=== PATIENT | male | born 1980 | race Caucasian/White ===

== ENCOUNTER 2018-11-07 16:01 | Emergency (ER) | payer MEDICAID ==
[~2018-11-07] VITALS: Ht 190.5 cm; Wt 94.8 kg
[2018-11-07] MEDS ORDERED: IBUP-1114 PO (16:10)
[2018-11-07 18:00] VITALS: BP 128/78
--- NOTE | 2018-11-07 18:55 | REP ---
RIGHT HAND, FOUR VIEWS: Four views of the right hand are performed. On one of the oblique views there is some cortical irregularity of the head of the 5th metacarpal which could possibly indicate a subtle fracture at that location. There is also an apparent irregularity at the medial margin of the hamate which may represent a fracture. Otherwise no acute fracture, dislocation or instrinsic bone disease is seen. Electronically Signed by Anup Lobato MD 11/08/2018 05:00 P
== END 2018-11-07 18:00 | disposition home or self-care (01) ==
LOC: M ED 16:01
DX: S62.145A Nondisplaced fracture of body of hamate [unciform] bone, left wrist, initial encounter for closed fracture (principal); W23.1XXA Caught, crushed, jammed, or pinched between stationary objects, initial encounter; Y92.009 Unspecified place in unspecified non-institutional (private) residence as the place of occurrence of the external cause

== ENCOUNTER → 2018-11-10 | Outpatient (CLI) | payer MEDICAID ==
[~2018-11-10] MED LIST: IBUP-1114 PO
--- NOTE | 2018-11-10 16:23 | REP ---
CT study of the right hand without contrast: History: Dislocation of the fifth metacarpal carpal joint right hand. Comparison radiographs November 07, 2018. CT technique: Helical scanning is acquired and 2 mm axial images are generated. Coronal and sagittal MPR images are generated and reviewed. CT findings: CT imaging confirms the presence of a fracture/dislocation of the fifth carpometacarpal articulation with fracture fragments and some impaction on the ulnar aspect of the distal hamate bone. No definite proximal fifth metacarpal fracture is seen. The proximal end of the fifth metacarpal, however, is subluxed medially (in an ulnar direction). There is some override associated with impaction of the ulnar aspect of the distal surface of the hamate. There is diastases in the articulation between the proximal end of the fifth and the proximal end of the fourth metacarpals. No other carpal or metacarpal fracture is appreciated. Impression: Impacted fracture/dislocation of the 5th carpometacarpal joint with comminuted impacted fragments of the ulnar aspect of the distal end of the hamate bone. The fifth proximal metacarpal appears intact but it is displaced in an ulnar and dorsal direction. Electronically Signed by Jaylon Hwang MD 11/10/2018 04:29 P
== END ==
LOC: M RAD 15:05
PROVIDERS: ATTEND Orthopaedic Surgery Hand Surgery
DX: S63.054A Dislocation of other carpometacarpal joint of right hand, initial encounter (principal); S62.310A Displaced fracture of base of second metacarpal bone, right hand, initial encounter for closed fracture; X58.XXXA Exposure to other specified factors, initial encounter; Y92.9 Unspecified place or not applicable

== ENCOUNTER 2018-11-14 13:13 | Day surgery (SDC) | payer MEDICAID ==
[~2018-11-14] VITALS: Ht 190.5 cm; Wt 92.9 kg
[~2018-11-14 13:13] MED LIST changes: +LIDOCAINE 1% MDV 20ML VIAL SQ PRN; +LR 1,000 ML IV ONE
[2018-11-14] MEDS ORDERED: MIDAZOLAM INJ 2 MG/2 ML VIAL (J2250) As Ordered ONE (14:45)
[2018-11-14] MEDS ORDERED: ONDANSETRON 4MG/2ML VIAL (J2405) As Ordered ONE (14:45)
[2018-11-14] MEDS ORDERED: fentaNYL 100 MCG/2 ML INJECTION (J3010) As Ordered ONE (14:45)
[2018-11-14] MEDS ORDERED: PROPOFOL 200 MG/20 ML VIAL As Ordered ONE ×2 (14:45→14:47)
[2018-11-14] MEDS ORDERED: dexameTHASONE 4 MG/ML 1ML VIAL (J1100) As Ordered ONE (14:45)
[2018-11-14] MEDS ORDERED: LIDOCAINE 2% INJ 100 MG/5 ML SDV (FOR ANES.) As Ordered ONE (14:45)
[2018-11-14] MEDS ORDERED: BUPIVACAINE/EPIN 0.25% 30 ML VIAL As Ordered ONE (15:14)
[2018-11-14] MEDS ORDERED: oxyCODONE 5MG TAB As Ordered ONE (16:36)
[2018-11-14] MEDS: oxyCODONE 5MG TAB PO PRN ×2 (16:40→17:12)
[2018-11-14] MEDS ORDERED: LR 1,000 ML IV SCH (16:45)
[2018-11-14] MEDS ORDERED: fentaNYL 100 MCG/2 ML INJECTION (J3010) IV PRN (16:45)
[2018-11-14] MEDS ORDERED: ONDANSETRON 4MG/2ML VIAL (J2405) IV PRN (16:45)
--- NOTE | 2018-11-14 16:48 | REP ---
C-ARM VIEWS, RIGHT HAND: Multiple C-ARM views right hand are performed intraoperatively. Pins are placed in the region of the 5th metacarpal. The osseous structures appear grossly well aligned. 45.5 seconds of fluoroscopy time was utilized. Electronically Signed by Anup Lobato MD 11/15/2018 10:29 A
[2018-11-14] MEDS ORDERED: KETOROLAC 30 MG/ML VIAL (J1885) As Ordered ONE (16:49)
[2018-11-14] MEDS ORDERED: KETOROLAC 30 MG/ML VIAL (J1885) IV ONE (17:00)
[2018-11-14 17:40] VITALS: BP 119/62
[2018-11-14] MEDS ORDERED: oxyCODONE 5MG TAB PO PRN ×2 (17:46)
[2018-11-14] MEDS ORDERED: MORPHINE 4 MG/ML 1ML VIAL/SYRINGE (J2270) IV PRN (17:46)
--- NOTE | 2018-11-15 13:39 | RO ---
DATE OF PROCEDURE: 11/14/2018 PREOPERATIVE DIAGNOSIS: Right 5th carpometacarpal (CMC) fracture dislocation with hamate fracture. POSTOPERATIVE DIAGNOSIS: Right 5th carpometacarpal (CMC) fracture dislocation with hamate fracture. PROCEDURE: Right open reduction and internal fixation of CMC fracture dislocation of the 5th digit. Open reduction internal fixation right hamate INDICATIONS: This is a pleasant 38-year-old male who suffered an injury to his right hand, resulting in an unstable injury of his right 5th CMC. In order to give him the most appropriate function going forward, I recommended operative intervention. The patient agreed. We discussed all risks and benefits, including but not limited to blood loss, damage to surrounding structures, and infection. SURGEON: Wil Gonsalves MD ASSISTANTS: Marilia Callahan PA-C, who was instrumental for retraction during the hanson components of the procedure. ANESTHESIA: General. ANTIBIOTICS: 2 grams of Ancef. TOURNIQUET TIME: 33 minutes. COMPLICATIONS: None. PROCEDURE DESCRIPTION: The patient was brought back to the operating room (OR), laid down supine on the operative table, undergoing general anesthesia. Once this was complete, we prepped and draped the right arm in the usual fashion. Time-out was had, at which point we raised the tourniquet up to 250 mmHg. We then made a longitudinal incision overlying the 5th CMC. We sharply dissected through using tenotomies to identify any branches of ulnar sensory nerve. Once we found the CMC, we sharply incised the base of the 5th metacarpal along the hamate, exposing the capsule and opening it up, as well. We were able to see the fracture of that hamate at this time. We then reduced the 5th CMC under direct visualization and locked it in place with the 0.045 K wire, going from the 5th to the 4th metacarpal base. This was done twice along with an intramedullary pinning with 0.045 starting at the collateral recess of the 5th metacarpal and down and buried into the hamate. At this point, we felt the reduction was adequate under direct visualization and secure. We confirmed this with mini C-Arm. Once we were happy with this, we irrigated the wound thoroughly, closed the capsule with 2-0 Vicryl reducing the hamate fracture, and closed the subcutaneous tissue with 2-0 Vicryl, and stitched the enclosure with 3-0 Monocryl, at which point we placed the patient in an ulnar gutter cast and tourniquet was let down. Tourniquet time was 33 minutes. The patient was awakened from general anesthesia and taken safely to postanesthesia care unit (PACU). POSTOPERATIVE PLAN: The patient will be in an ulnar gutter cast for 2 weeks. We will see him at the office. Will do cast removal, check on the incision, and place him back into an ulnar gutter cast for approximately another 4 weeks, at which point we will remove the pins and convert him over to a splinting. TESSA
== END 2018-11-14 18:15 | disposition home or self-care (01) ==
LOC: M SDC 13:13
PROVIDERS: ATTEND Orthopaedic Surgery Hand Surgery
DX: S63.054A Dislocation of other carpometacarpal joint of right hand, initial encounter (principal); S62.141A Displaced fracture of body of hamate [unciform] bone, right wrist, initial encounter for closed fracture; X58.XXXA Exposure to other specified factors, initial encounter; Y92.89 Other specified places as the place of occurrence of the external cause; Y93.9 Activity, unspecified; Y99.9 Unspecified external cause status; F17.210 Nicotine dependence, cigarettes, uncomplicated
CPT/HCPCS: 26615; 76000; J0690; J1100; J1885; J2250; J2270; J2405; J3010

== ENCOUNTER 2018-11-25 21:52 | Inpatient (IN) | payer MEDICAID ==
[~2018-11-25] VITALS: Ht 182.9 cm; Wt 101.9 kg
[~2018-11-25 21:52] MED LIST changes: -LIDOCAINE 1% MDV 20ML VIAL SQ PRN; -LR 1,000 ML IV ONE
[2018-11-25] MEDS ORDERED: DOPamine 400 MG/500 ML BAG IN D5W (800MCG/ML) (J1265) As Ordered ONE (22:11)
[2018-11-25] MEDS ORDERED: SODIUM BICARBONATE 8.4% INJ 50 ML SYRINGE As Ordered ONE (22:12)
[2018-11-25 22:29] LABS: HEMATOCRIT 48.5 % (42.0-52.0); HEMOGLOBIN 14.5 g/dl (13.5-17.5); MEAN CORPUSCULAR HEMOGLOBIN 30.3 pg (27.0-33.0); MEAN CORPUSCULAR HGB CONC 29.9 g/dl (32.0-36.5); MEAN CORPUSCULAR VOLUME 101.3 fl (80.0-96.0); PLATELET COUNT, AUTOMATED 153 10^3/uL (150-450); RED BLOOD COUNT 4.79 10^6/uL (4.30-6.10); WHITE BLOOD COUNT 18.6 10^3/uL (4.0-10.0)
[2018-11-25] MEDS ORDERED: LIDOCAINE 2% 5ML JELLY UROJET TOP ONE ×2 (22:30)
[2018-11-25 22:48] LABS: ATYPICAL LYMPH 1 % (0-5); LYMPHOCYTES 11 % (16-44); METAMYELOCYTES 1 % (0-0); MONOCYTES 18 % (0-5); MYELOCYTES 1 % (0-0); NEUTROPHILS 63 % (28-66)
[2018-11-25 22:49] LABS: PLATELET ESTIMATE DECREASED (NORMAL)
[2018-11-25] MEDS ORDERED: NS 1,000 ML IV STA (23:17)
[2018-11-25] MEDS ORDERED: EPINEPHrine 1MG/10ML SYRINGE 1.5IN IV STA ×3 (23:24)
[2018-11-25] MEDS ORDERED: DOPamine HCL 400 MG in IV 1 EA IV SCH (23:30)
[2018-11-25] MEDS ORDERED: NS 1,000 ML IV SCH (23:30)
[2018-11-25 23:34] LABS: AMPHETAMINES LEVEL URINE NEGATIVE (NEGATIVE); BARBITURATES URINE NEGATIVE (NEGATIVE); BENZODIAZEPINES URINE NEGATIVE (NEGATIVE); CANNABINOIDS URINE NEGATIVE (NEGATIVE); COCAINE METABOLITE URINE POSITIVE (NEGATIVE); METHADONE URINE NEGATIVE (NEGATIVE); OPIATES URINE POSITIVE (NEGATIVE); PHENCYCLIDINE URINE NEGATIVE (NEGATIVE)
[2018-11-25] MEDS ORDERED: NOREPINEPHRINE 4 MG/4 ML AMP As Ordered ONE (23:34)
[2018-11-25 23:40] LABS: ALBUMIN 3.4 GM/DL (3.2-5.2); ALT/SGPT 3508 U/L (12-78); AMYLASE 125 U/L (25-115); BILIRUBIN,DIRECT 0.7 MG/DL (0.0-0.2); BLOOD UREA NITROGEN 36 MG/DL (7-18); CALCIUM LEVEL 7.6 MG/DL (8.5-10.1); CARBON DIOXIDE LEVEL 19 MEQ/L (21-32); CHLORIDE LEVEL 101 MEQ/L (98-107); CPK CREATINE PHOSPHOKINASE 4372 U/L (39-308); CREATININE FOR GFR 3.88 MG/DL (0.70-1.30); ETHYL ALCOHOL (ETHANOL) < 0.003 % (0.000-0.010); GLOMERULAR FILTRATION RATE 18.6 (>60); GLUCOSE, FASTING 53 MG/DL (70-100); LIPASE 208 U/L (73-393); MB/CK RELATIVE INDEX 0.43 (< OR =4); POTASSIUM SERUM 4.7 MEQ/L (3.5-5.1); SODIUM LEVEL 143 MEQ/L (136-145); TOTAL PROTEIN 6.4 GM/DL (6.4-8.2); TROPONIN I 0.19 NG/ML (< 0.10)
[2018-11-25] MEDS: NOREPINEPHRINE BITARTRATE 8 MG in D5W 492 ML IV SCH (23:46)
[2018-11-26] VITALS (52 sets, daily range): BP systolic 89–155; BP diastolic 40–73; O2SAT 92–94
[2018-11-26] MEDS ORDERED: D10W/0.45% SODIUM CHLORIDE 1,000 ML IV SCH
[2018-11-26] MEDS ORDERED: NS 1,000 ML IV STA (00:23)
[2018-11-26 00:36] LABS: PARTIAL THROMBOPLASTIN TIME 44.7 SECONDS (25.0-38.4); PROTHROMBIN TIME 24.2 SECONDS (11.8-14.0)
[2018-11-26] MEDS: NOREPINEPHRINE BITARTRATE 8 MG in D5W 492 ML IV SCH ×5 (00:37→23:42)
[2018-11-26] MEDS ORDERED: D5W/0.45% SODIUM CHLORIDE 1,000 ML IV SCH (00:39)
[2018-11-26] MEDS ORDERED: MIDAZOLAM INJ 2 MG/2 ML VIAL (J2250) IV PRN (00:45)
[2018-11-26 00:55] LABS: D-DIMER QUANT < 4000 ng/ml (<500)
[2018-11-26] MEDS ORDERED: SODIUM BICARBONATE 8.4% INJ 50 ML SYRINGE As Ordered ONE (01:23)
[2018-11-26] MEDS ORDERED: SODIUM BICARBONATE 8.4% INJ 50 ML SYRINGE IV STA (01:26)
[2018-11-26 01:28] LABS: ACETAMINOPHEN LEVEL < 2.0 UG/ML (10.0-30.0); NT-PRO BNP 790 PG/ML (<125); SALICYLATE LEVEL 3.8 MG/DL (5.0-30.0)
[2018-11-26] MEDS ORDERED: ACETYLCYSTEINE 14,700 MG in D5W 250 ML IV ONE (01:30)
[2018-11-26] MEDS ORDERED: ACETAMINOPHEN 650 MG SUPP PR PRN (01:45)
[2018-11-26] MEDS ORDERED: VASOPRESSIN INJ 20 UNITS in NS 499 ML IV SCH (01:45)
[2018-11-26] MEDS ORDERED: ACETAMINOPHEN 650 MG SUPP PR ONE (01:45)
[2018-11-26] MEDS ORDERED: LACRILUBE (AKWA TEARS) OPHTH OINT 3.5 GM OU PRN (01:45)
[2018-11-26 02:08] LABS: CK-MB VALUE MASS 26.8 NG/ML (<3.6); MB/CK RELATIVE INDEX 0.65 (< OR =4); TROPONIN I 0.6 NG/ML (< 0.10)
[2018-11-26] MEDS ORDERED: ACETYLCYSTEINE 4,900 MG in D5W 500 ML IV ONE (02:30)
[2018-11-26] MEDS: PIPERACILLIN/TAZOBACTAM SOD 2.25 GM in D5W MINI-BAG PLUS 50 ML IV SCH ×3 (03:07→20:11)
[2018-11-26] MEDS ORDERED: PROPOFOL 1,000 MG/100 ML VIAL As Ordered ONE (03:40)
[2018-11-26 03:58] LABS: ABG BASE EXCESS -13.9 (-2.0-2.0); ABG HCO3 16.6 MEQ/L (22.0-26.0); ABG PARTIAL PRESSURE CO2 57.5 mmHg (35.0-45.0); ABG PARTIAL PRESSURE O2 79.5 mmHg (75.0-100.0); ABG STANDARD HCO3 13.9 MEQ/L (22.0-26.0); ABG TOTAL CO2 18.4 MEQ/L (22.0-29.0); ABG pH (ARTERIAL) 7.078 UNITS (7.350-7.450)
[2018-11-26] MEDS: PROPOFOL 1,000 MG in IV 1 EA IV SCH ×3 (04:19→21:24)
[2018-11-26 04:35] LABS: HEMATOCRIT 45.8 % (42.0-52.0); HEMOGLOBIN 14.5 g/dl (13.5-17.5); MEAN CORPUSCULAR HEMOGLOBIN 29.4 pg (27.0-33.0); MEAN CORPUSCULAR HGB CONC 31.7 g/dl (32.0-36.5); MEAN CORPUSCULAR VOLUME 92.9 fl (80.0-96.0); PLATELET COUNT, AUTOMATED 152 10^3/uL (150-450); RED BLOOD COUNT 4.93 10^6/uL (4.30-6.10); WHITE BLOOD COUNT 8.3 10^3/uL (4.0-10.0)
[2018-11-26 05:05] LABS: INR 2.6; PROTHROMBIN TIME 27.7 SECONDS (11.8-14.0)
[2018-11-26 05:06] LABS: PARTIAL THROMBOPLASTIN TIME 39.3 SECONDS (25.0-38.4)
[2018-11-26 05:12] LABS: ALBUMIN 2.4 GM/DL (3.2-5.2); BILIRUBIN,TOTAL 1.4 MG/DL (0.2-1.0); CALCIUM LEVEL 5.6 MG/DL (8.5-10.1); CREATININE FOR GFR 3.3 MG/DL (0.70-1.30); GLOMERULAR FILTRATION RATE 22.4 (>60); MAGNESIUM LEVEL 2.3 MG/DL (1.8-2.4); PHOSPHORUS LEVEL 8.9 MG/DL (2.5-4.9); POTASSIUM SERUM 5.1 MEQ/L (3.5-5.1); TOTAL PROTEIN 5.4 GM/DL (6.4-8.2)
[2018-11-26] MEDS ORDERED: CALCIUM GLUCONATE 1,000 MG in D5W MINI-BAG PLUS 100 ML IV ONE ×2 (05:30→11:00)
[2018-11-26 05:37] LABS: BASOPHILS 1 % (0-1); LYMPHOCYTES 15 % (16-44); MONOCYTES 2 % (0-5); NEUTROPHILS 76 % (28-66)
[2018-11-26 05:38] LABS: GIANT PLATELETS 1+; PLATELET ESTIMATE NORMAL (NORMAL)
[2018-11-26] MEDS ORDERED: HEPARIN SOD (PORCINE) 5000 UNITS/ML VIAL SC SCH (06:00)
[2018-11-26] MEDS ORDERED: ACETYLCYSTEINE 9,800 MG in D5W 1,000 ML IV ONE (06:42)
--- NOTE | 2018-11-26 07:49 | RO ---
DATE OF PROCEDURE: 11/26/2018 PREPROCEDURE DIAGNOSIS: Cardiac arrest and shock. POSTPROCEDURE DIAGNOSIS: Cardiac arrest and shock. PROCEDURE: Arterial line insertion ATTENDING PHYSICIAN: Dr. Carter INDICATION: Shock. CONSENT: Consent was implied due to the emergent nature of the procedure. Verbal consent and discussion was obtained with the patient's . Indication, risks and benefits were explained at that time. PROCEDURE SUMMARY: Time-out was performed. A full sterile technique was maintained throughout the procedure including surgical cap, mas, protective eyewear, sterile gown, and sterile gloves. The right inguinal region was prepped using chlorhexidine scrub and draped in sterile fashion using a fenestrated drape and a sterile probe cover. Using ultrasound and real-time [id number] guidance, the right femoral artery was visualized and the introducer needle was inserted into the femoral artery. Arterial blood was drawn. The syringe was removed and a guidewire was advanced through the needle into the femoral artery. The needle was exchanged over the wire for an arterial catheter. The wire was removed and the catheter was sutured to the skin using sutures. Chlorhexidine and a sterile dressing was placed over the catheter site. At the time of procedure completion, the catheter was connected to the monitoring analyst and calibrated. Appropriate waveform buttress tracing was observed. Estimated blood loss is approximately 5 mL. Postprocedure, the patient was noted to have a hematoma in the right inguinal region with pressure applied and hemostasis achieved and improvement in hematoma. TESSA
[2018-11-26 08:30] LABS: ABG HCO3 16.3 MEQ/L (22.0-26.0); ABG O2 SATURATION 92.9 % (95.0-99.0); ABG PARTIAL PRESSURE CO2 50.1 mmHg (35.0-45.0); ABG PARTIAL PRESSURE O2 78.7 mmHg (75.0-100.0); ABG STANDARD HCO3 14.5 MEQ/L (22.0-26.0); ABG TOTAL CO2 17.8 MEQ/L (22.0-29.0)
[2018-11-26 08:31] LABS: ABG pH (ARTERIAL) 7.129 UNITS (7.350-7.450)
[2018-11-26 08:32] LABS: HEMATOCRIT 46.7 % (42.0-52.0); HEMOGLOBIN 14.9 g/dl (13.5-17.5); MEAN CORPUSCULAR HEMOGLOBIN 29.9 pg (27.0-33.0); MEAN CORPUSCULAR HGB CONC 31.9 g/dl (32.0-36.5); MEAN CORPUSCULAR VOLUME 93.8 fl (80.0-96.0); PLATELET COUNT, AUTOMATED 124 10^3/uL (150-450); RED BLOOD COUNT 4.98 10^6/uL (4.30-6.10); WHITE BLOOD COUNT 2.8 10^3/uL (4.0-10.0)
[2018-11-26 08:39] LABS: INR 2.57; PROTHROMBIN TIME 27.5 SECONDS (11.8-14.0)
[2018-11-26 08:40] LABS: PARTIAL THROMBOPLASTIN TIME 38.7 SECONDS (25.0-38.4)
[2018-11-26] MEDS: PANTOPRAZOLE 40MG INJ (PROTONIX) (C9113) IV SCH (09:13)
[2018-11-26] MEDS: CHLORHEXIDINE GLUCONATE 0.12 % 15ML UDC (PERIDEX ORAL RINSE) MT SCH ×2 (09:13→20:11)
[2018-11-26] MEDS: LACRILUBE (AKWA TEARS) OPHTH OINT 3.5 GM OU SCH ×3 (09:14→20:12)
--- NOTE | 2018-11-26 09:27 | REP ---
AP PORTABLE CHEST: 11/25/2018 at 10:26 PM. Clinical history: ET tube placement. Findings: Portable supine AP chest with metal reinforce in bars on a stretcher. There is a endotracheal tube present intubating the right mainstem bronchus appears to be about 2.7 cm beyond the george. Nasogastric tube is seen coursing into the left upper quadrant its tip off the field, well into the stomach. There is a right jugular central venous catheter tip in SVC. Retrocardiac density in the left lung and patchy atelectasis or infiltrates/contusion seen within that lung. The right lung is better inflated. There is no gross pneumothorax. There is slight deviation of the heart towards the left of midline with volume loss in the left hemithorax likely related to the right mainstem bronchus intubation. Bones are grossly intact. Impression: 1. Right mainstem bronchus intubation at about 2.7 cm beyond the george. 2. Nasogastric tube coursing into the stomach off the field well into the left upper quadrant. 3. Right jugular central catheter with tip in SVC. 4. Extensive atelectasis or infiltrates in the left lung which may be related to right mainstem bronchus intubation aspiration, pneumonia, etc. cannot be excluded. 5. No visible bony finding. Electronically Signed by Sree Clarke MD 11/26/2018 01:08 P
[2018-11-26 09:30] LABS: ALBUMIN 2.4 GM/DL (3.2-5.2); BILIRUBIN,TOTAL 1.1 MG/DL (0.2-1.0); CALCIUM LEVEL 6.5 MG/DL (8.5-10.1); CREATININE FOR GFR 3.6 MG/DL (0.70-1.30); GLOMERULAR FILTRATION RATE 20.3 (>60); PHOSPHORUS LEVEL 4.3 MG/DL (2.5-4.9); POTASSIUM SERUM 3.7 MEQ/L (3.5-5.1); TOTAL PROTEIN 4.9 GM/DL (6.4-8.2); TROPONIN I 3.16 NG/ML (< 0.10)
--- NOTE | 2018-11-26 09:30 | REP ---
AP PORTABLE CHEST: 11/25/2018 at 11:33 PM. Comparison: Study 1 hour earlier. Clinical history: Hypothermia. Repositioning of the ET tube. Findings: Endotracheal tube has been pulled back now sits about 3.5 cm above the george but below the thoracic inlet. The right jugular catheter is unchanged. The NG tube appears to been pulled back its tip now at or just above the GE junction. Lungs are hypoinflated. There is patchy atelectasis or infiltrate in the left lung and subtle patchy perihilar opacities in the right. No layering effusion. No gross pneumothorax. No acute bony finding. Impression: 1. Endotracheal tube pulled back. Tip now 3.5 cm above the george. The full level of inflation of the lungs. 2. Nasogastric tube also pulled back, its tip now at or just above the GE junction. 3. The jugular catheter on the right side is unchanged. There is slightly improved aeration was still diffuse patchy infiltrates or atelectasis in the left lung and some perihilar patchy densities on the right. No other significant or new finding. Electronically Signed by Sree Clarke MD 11/26/2018 01:08 P
--- NOTE | 2018-11-26 09:31 | REP ---
AP PORTABLE CHEST: 11/26/2018 at 03:01 AM. Comparison: 11/25/2018. Clinical history: Hypothermia. Intubation. Findings: Right jugular catheter is unchanged. There is a new left jugular catheter present, its tip in the proximal left brachial cephalic vein. Nasogastric tube is at the GE junction as on the previous study. There is extensive air space consolidation in the left lung increased since the previous study even in the face of better level of inflation overall. Some improvement in perihilar infiltrates atelectasis on the right. No gross effusion. Bones grossly intact. No abnormal widening of the mediastinum. Impression: 1. New left jugular central catheter with tip in the left brachiocephalic vein with the right jugular catheter, nasogastric tube and endotracheal tubes grossly unchanged. 2. Extensive infiltrates throughout the left lung with more dense consolidation even with better level of inflation overall. Right lung shows some perihilar interstitial change but improvement. Electronically Signed by Sree Clarke MD 11/26/2018 01:08 P
[2018-11-26] MEDS ORDERED: GLUCOSE 4 GM CHEW TABLET PO PRN (10:00)
[2018-11-26] MEDS ORDERED: GLUCAGON FOR INJ 1 MG VIAL (J1610) SC PRN (10:00)
--- NOTE | 2018-11-26 11:43 | ECHO ---
DATE OF STUDY: REFERRING PHYSICIAN: Dr. Sulma Carter INDICATION: Status post cardiac arrest. HEIGHT: 182 cm WEIGHT: 98 kg 2-D MEASUREMENTS: LVOT: 2.2 cm Aortic root: 3.2 cm Left atrium: 3.8 cm Ventricular septum: 5.5 cm Left ventricle systole: 4.0 cm Ventricular septum: 0.82 cm Posterior wall: 1.03 cm Inferior vena cava: 2.9 cm (more than 50% respiratory variation) DOPPLER MEASUREMENTS: Aortic valve velocity: 133 cm/s LVOT velocity: 103 cm/s Very mild mitral regurgitation within normal limits. Mitral E velocity: 84.9 cm/s Mitral A velocity: 38.8 cm/s Mitral deceleration time: 201 ms Very mild tricuspid regurgitation. Estimated right ventricle systolic pressure 25-30 mmHg assuming an atrial pressure of 5-10 mmHg. Pulmonary artery systolic pressure: 25 mmHg MITRAL ANNULAR TISSUE DOPPLER: E prime septal: 9.0 cm/s E prime lateral: 13.1 cm/s DESCRIPTION: Rhythm was sinus. Image quality was good. No aortic arch view available due to concurrent central line placement. CONCLUSIONS: 1. Normal echocardiogram-Doppler. 2. Normal left ventricle internal dimensions and wall thickness. Normal regional LV wall motion and wall thickening. Normal LV systolic function. Left ventricular ejection fraction (LVEF) 55-60% by visual estimate. Normal LV diastolic function. 3. Sinus venous pressure estimated to be 5-10 mmHg. Estimated right ventricle systolic pressure 25-30 mmHg. 4. No pericardial effusion. 5. Appearance of normal right ventricle size and systolic function.
[2018-11-26] MEDS: HumaLOG INSULIN (NovoLOG) PER UNIT SC SCH ×4 (11:59→23:41)
[2018-11-26] MEDS ORDERED: PHYTONADIONE 5 MG TAB PO ONE (12:00)
[2018-11-26 12:01] LABS: ABG O2 SATURATION 95.2 % (95.0-99.0)
[2018-11-26 12:03] LABS: ABG BASE EXCESS -9.7 (-2.0-2.0); ABG HCO3 20.1 MEQ/L (22.0-26.0); ABG PARTIAL PRESSURE CO2 59.9 mmHg (35.0-45.0); ABG PARTIAL PRESSURE O2 87.2 mmHg (75.0-100.0); ABG STANDARD HCO3 16.9 MEQ/L (22.0-26.0)
[2018-11-26 12:04] LABS: ABG pH (ARTERIAL) 7.144 UNITS (7.350-7.450)
[2018-11-26 12:07] LABS: HEMATOCRIT 45.9 % (42.0-52.0); HEMOGLOBIN 15.1 g/dl (13.5-17.5); MEAN CORPUSCULAR HEMOGLOBIN 30.3 pg (27.0-33.0); MEAN CORPUSCULAR HGB CONC 32.9 g/dl (32.0-36.5); PLATELET COUNT, AUTOMATED 110 10^3/uL (150-450); RED BLOOD COUNT 4.99 10^6/uL (4.30-6.10); WHITE BLOOD COUNT 4.7 10^3/uL (4.0-10.0)
[2018-11-26 12:17] LABS: INR 2.51; PARTIAL THROMBOPLASTIN TIME 35.5 SECONDS (25.0-38.4); PROTHROMBIN TIME 26.9 SECONDS (11.8-14.0)
--- NOTE | 2018-11-26 12:22 | ECGEPIP ---
[facility] Test Date: 2018-11-26 Pat Name: SHIV PELAEZ Department: Room: [place] [address] Gender: Male [employer]: SUZAN : 1980 Requested By: USAMA VIDAL Order Number: [id number] Reading MD: Norman Young Measurements Intervals [place] Rate: 92 P: 75 SD: 161 QRS: 77 QRSD: 96 T: 62 QT: 401 QTc: 496 Interpretive Statements Normal sinus rhythm Minor repolarization abnormalities Compared to prior tracing of 11/25/2018, the anterior repolarization abnormality in leads V2 and V3 has improved Electronically Signed on 11-26-2018 12:21:46 EDT by Norman Young
[2018-11-26 12:57] LABS: ALBUMIN 2.4 GM/DL (3.2-5.2); BILIRUBIN,TOTAL 1.2 MG/DL (0.2-1.0); CREATININE FOR GFR 3.76 MG/DL (0.70-1.30); GLOMERULAR FILTRATION RATE 19.3 (>60); PHOSPHORUS LEVEL 3.9 MG/DL (2.5-4.9); POTASSIUM SERUM 3.4 MEQ/L (3.5-5.1)
--- NOTE | 2018-11-26 13:28 | HPE ---
DATE OF ADMISSION: 11/26/2018 The patient is a 38-year-old male with past medical history of diabetes and right fifth metacarpal fracture presented to [facility] ([facility]) emergency room (ER) due to cardiopulmonary arrest. It was noted that saw patient around 8 o'clock while he was found unresponsive on the floor. Emergency Medical Services (EMS) arrived around 2117 hours and cardiopulmonary resuscitation (CPR) initiated at that time. The patient got two doses of Narcan and three rounds of epinephrine and return of spontaneous circulation (ROSC) was obtained afterwards. Upon arrival of the EMS, the patient was noted to have another cardiopulmonary arrest and more epinephrine as well as bicarbonate was given and ROSC was obtained after entering the building. The patient's reported that when she saw him this morning around 7 o'clock in the morning the patient was having no complaints including any lightheadedness, dizziness. She reported she then went out shopping and when she returned she found patient unresponsive on the floor. Limited history of present illness (HPI) and the review of systems was not able to be obtained due to the patient's mental status and clinical condition. PAST MEDICAL HISTORY: Diabetes not on medications outpatient. PAST SURGICAL HISTORY: Hernia repair in 1999, open reduction and pinning of the right metacarpal joint. ALLERGIES: NO KNOWN DRUG ALLERGIES. SOCIAL HISTORY: The patient was recently released from incarceration 3 weeks ago. No sick contacts are noted. The patient recently got with current 3 weeks ago. denies history of drug abuse, was prescribed opioid pain medication, a one month supply he finished in a little more than a week. VITAL SIGNS: Temperature 91.0, pulse 70, respiratory rate 36, blood pressure 105/52, pulse oximetry 94% on ventilator setting tidal volume 450, respiratory 25, PEEP 10, FiO2 90%. GENERAL: Patient is not alert and unresponsive, not appear to be in acute distress and not able to follow any commands or answering questions. HEENT: Head normocephalic. Right internal jugular (IJ) and left IJ central lines in place. Endotracheal tube (ET) tube and orogastric (OG) tube in place. Mucosa appeared to be mildly dry. Bruising noted around right eye, no other obvious signs of trauma. HEART: Regular rate and rhythm. No murmur. LUNGS: Coarse ventilator sounds auscultated bilaterally. No obvious accessory muscle use. Rhonchi noted in left lung. ABDOMEN: Soft. Bowel sounds mildly hypoactive. No guarding or distention noted in all four quadrants. EXTREMITIES: Faint radial pulse palpated equal bilaterally. NEUROLOGIC: Patient nonresponsive, not following any commands or answering questions. Pupils are small, not responsive the light bilaterally, no gag reflex. IMAGING: Chest x-ray showed diffuse patchy infiltrates in left upper and lower lobes with right perihilar opacity. ET tube in appropriate position. OG tube also in appropriate position as well CT head- no evidence of bleeding, pending official read LABS: CBC: WBC 18.6, hemoglobin 14.5, hematocrit 48.5, platelet 153. Chemistry: Sodium 143, potassium 4.7, chloride 101, carbon dioxide 19, anion gap 23, BUN 36, creatinine 3.88, GFR 18.6, fasting glucose 53, osmolarity 311, lactic acid 14.1, calcium 7.6, phosphorus 16.0, magnesium 4.0, total bilirubin 1.0, direct bilirubin 0.7, AST 4875, ALT 3508, alkaline phosphatase 70, total creatinine kinase 4372 followed by 4099. Troponin 0.19, then 0.60. BNP 790. Albumin 3.4, TSH 1.9, lipase 208. Coagulation panel: PT 24.2 and now 50.2. PTT 44.7. D-dimer less than 4000. Urine cloudy with trace ketones, negative for blood, nitrite. Trace leukocyte esterase. ABG: pH 6.9, base excess negative 14, pO2 170, pCO2 83.8, aCo3 17.9. ASSESSMENT AND PLAN: Patient is a 38 yo male with PMH of diabetes presented to [facility] due to 2 cardiopulmonary arrest episodes and altered mental status. CPR was initiated, and pt received Narcan, epinephrine, and bicarb. Right IJ center catheter placed in ER. ROSC was obtained and pt was admitted to ICU. Neurometabolic encephalopathy from metabolic acidosis, questionable anoxic injury with unknown substance ingestion. The patient is unresponsive to painful stimuli. Pupil nonresponsive. Patient was started on hypothermia protocol at target temperature 36 celsius for 24 hours. Propofol with as needed Versed. Urine (U) toxicology positive for opiates and cocaine. The patient's reported the patient is on Percocet outpatient for the right hand. U toxicology negative for the other substance including salicylates, methadone, barbiturates, PCP, benzodiazepines, cannabinoids, and alcohol. Cardiac: The patient is status post cardiopulmonary arrest obtaining ROSC. EKG showed no obvious ST elevations or depression. Bedside echo was done that showed no obvious RV enlargement was noted. Mild hypokinesis of the left ventricle was noted. The patient was in shock post arrest, possibly cardiogenic or secondary to septic shock as he had leukocytosis and hypothermia. The patient was started on dopamine and Levophed in ER. Vasopressor with was initially started, however was subsequently discontinued as the patient's blood pressure zarina. Patient was weaned off of dopamine also and continued on levophed to maintain a MAP above 65. The patient is currently on D5W with half normal saline at 100 mL/h. He is status post 3 liters of normal saline bolus and 1 amp of bicarb. Lactic acidosis was 14.1, will followup lactic acid. The patient also had an elevated troponin 0.19 followed by 0.60. We will continue to trend the patient's troponin. The patient had a left central IJ line placed and his right central IJ will be removed as it was placed in ED under semi-sterile conditions. Will also get stat ECHO. Lung: The patient is currently intubated on PRVC with the following: Tidal volume 450, RR 25 and PEEP 10 with FiO2 90%. There was patchy infiltrations noted in left upper and lower lobe with right perihilar infiltrate. He will be started on Zosyn with renal dosing at this time with MRSA screen followup. Daily ABG and x-ray while intubated. Vent bundle with HOB elevation and chlorhexadine mouth wash. Gastrointestinal (GI): Abnormal liver function tests (LFTs) secondary to shock liver versus substance ingestion. Hepatitis B and C panels ordered. The patient will be given NAC protocol and will check tylenol and salicylate levels The patient will be on OG tube to low intermittent suction and remain nothing by mouth. We will cont to monitor LFTs Renal/Endocrine: The patient has acute kidney injury (YURY) with creatinine 3.88 and glomerular filtration rate (GFR) only 18.6 likely secondary to hypoperfusion. The patient will be on renally dosed medications. Continue to monitor CMP and patient may require dialysis if kidney functions continue to worsen. He also had a low glucose at 53 upon initial presentation, which may be secondary to shock liver injuries. Electrolyte disturbances including elevated phosphorus, magnesium may be secondary to YURY. Patient had anion gap acidosis secondary to lactic acidosis and additional respiratory acidosis. No osmolar gap on calculation. Hem/Onc: The patient had leukocytosis with elevated prothrombin time (PT) and partial thromboplastin time (PTT) and international normalized ratio (INR). This may be secondary to shock liver. DVT ppx: TEDs/SCDs and heparin Full code Total critical care time not including any procedures approx 2 hours and 25 mins ISulma, have conducted an independent history and examination of the patient and agree with the above detailed plan as documented and discussed with the resident. TESSA
--- NOTE | 2018-11-26 13:31 | RO ---
DATE OF PROCEDURE: 11/26/2018 The patient is a 38-year-old male with past medical history of diabetes not on home diabetic medications presented to [facility] ([facility]) after cardiopulmonary arrest times two obtaining ROSC. The patient received two liters of normal saline bolus. Dopamine and Levophed was started in the emergency room (ER). His blood pressure remained to be soft with a MAP lower or close to 65, thus it was determined a central line would be required after another liter of fluid bolus is ordered. Procedure was performed emergently and consent was implied due to the emergent nature of the procedure. Right-sided central line was inserted in emergency room (ER), however as it was semi-sterile, it was determined a left-sided central was required. PREPROCEDURE DIAGNOSIS: Unspecified shock requiring vasopressors. POSTPROCEDURE DIAGNOSIS: Unspecified shock requiring vasopressors. PROCEDURE: Left-sided triple lumen central venous line. SURGEON: Dr. Angelina Pham (Surgery was performed by Dr. Angelina Pham was directly observed and assisted by Dr. Sulma Carter). ANESTHESIA: The patient will have Versed and propofol for sedation. ESTIMATED BLOOD LOSS: 30 mL. Time-out was performed. DESCRIPTION OF PROCEDURE: The patient was lying on Trendelenburg position with the head turned 30 degrees away from the insertion site. The skin was thoroughly sponged with chlorhexidine and was allowed to dry. With sterile gloves and hands, the left neck area was draped with a large disposable sterile field provided in a pre-manufactured kit. The internal jugular vein was identified on ultrasound from the angle of mandible down to the supraclavicular fossa using a linear ultrasound probe in a transverse orientation. The carotid artery was identified and avoided. The internal jugular vein was then placed in the center of the ultrasound field and compressed for patency. A lumen artifact was identified as the needle was advanced through the skin and advanced towards the vessel. Real time hyperechoic signal revealed visualization of the vascular needle, entry into the lumen was blood noted to flush back into syringe. The needle was then held in place while the guide wire was advanced. The needle was then removed. Direct visualization and guidewire location within the vein was noted on ultrasound, indicating proper placement. A skin dilator was advanced over the guidewire and removed, and the triple lumen catheter was then advanced over the guidewire into proper position. The guidewire was removed and discarded. The ports were aspirated, which showed blood return and then carefully flushed with normal saline. The catheter was stabilized and sutured to the skin at 20 cm. A sterile Bio-occlusive dressing was placed over the catheter including the insertion site. The patient tolerated the procedure well. A chest x-ray was ordered for position confirmation. TESSA
[2018-11-26] MEDS ORDERED: CISATRACURIUM 200 MG in NS 480 ML IV SCH (14:00)
[2018-11-26] MEDS: CISATRACURIUM 200 MG in NS 480 ML IV SCH ×2 (14:12→23:31)
[2018-11-26] MEDS: fentaNYL 100 MCG/2 ML INJECTION (J3010) IV PRN (15:57)
[2018-11-26 15:58] LABS: ABG BASE EXCESS -10.8 (-2.0-2.0); ABG O2 SATURATION 91.5 % (95.0-99.0); ABG PARTIAL PRESSURE CO2 66.2 mmHg (35.0-45.0); ABG PARTIAL PRESSURE O2 74.1 mmHg (75.0-100.0); ABG TOTAL CO2 22.1 MEQ/L (22.0-29.0); ABG pH (ARTERIAL) 7.099 UNITS (7.350-7.450)
[2018-11-26 16:03] LABS: HEMATOCRIT 45.8 % (42.0-52.0); HEMOGLOBIN 15.1 g/dl (13.5-17.5); MEAN CORPUSCULAR HEMOGLOBIN 30.3 pg (27.0-33.0); PLATELET COUNT, AUTOMATED 105 10^3/uL (150-450); RED BLOOD COUNT 4.98 10^6/uL (4.30-6.10); WHITE BLOOD COUNT 7.4 10^3/uL (4.0-10.0)
[2018-11-26 16:13] LABS: INR 2.42; PROTHROMBIN TIME 26.2 SECONDS (11.8-14.0)
[2018-11-26 16:14] LABS: PARTIAL THROMBOPLASTIN TIME 35.7 SECONDS (25.0-38.4)
[2018-11-26 16:48] LABS: ALBUMIN 2.5 GM/DL (3.2-5.2); BILIRUBIN,TOTAL 1.1 MG/DL (0.2-1.0); CALCIUM LEVEL 6.5 MG/DL (8.5-10.1); CREATININE FOR GFR 3.76 MG/DL (0.70-1.30); GLOMERULAR FILTRATION RATE 19.3 (>60); PHOSPHORUS LEVEL 4.7 MG/DL (2.5-4.9); POTASSIUM SERUM 3.8 MEQ/L (3.5-5.1); TOTAL PROTEIN 4.7 GM/DL (6.4-8.2)
[2018-11-26 17:34] LABS: ABG BASE EXCESS -10.4 (-2.0-2.0); ABG FIO2 80; ABG HCO3 20.7 MEQ/L (22.0-26.0); ABG PATIENT RESP RATE 35 /MIN; ABG PEEP 12; ABG STANDARD HCO3 16.3 MEQ/L (22.0-26.0); ABG TOTAL CO2 22.8 MEQ/L (22.0-29.0)
[2018-11-26 17:36] LABS: ABG PARTIAL PRESSURE CO2 68.6 mmHg (35.0-45.0); ABG pH (ARTERIAL) 7.097 UNITS (7.350-7.450)
[2018-11-26 19:58] LABS: ABG BASE EXCESS -9.3 (-2.0-2.0); ABG HCO3 20.4 MEQ/L (22.0-26.0); ABG O2 SATURATION 94.6 % (95.0-99.0); ABG PARTIAL PRESSURE CO2 59.7 mmHg (35.0-45.0); ABG PARTIAL PRESSURE O2 83.8 mmHg (75.0-100.0); ABG STANDARD HCO3 17.1 MEQ/L (22.0-26.0); ABG TOTAL CO2 22.2 MEQ/L (22.0-29.0)
[2018-11-26 19:59] LABS: ABG pH (ARTERIAL) 7.151 UNITS (7.350-7.450)
[2018-11-26 20:01] LABS: HEMATOCRIT 45.3 % (42.0-52.0); HEMOGLOBIN 15.1 g/dl (13.5-17.5); MEAN CORPUSCULAR HEMOGLOBIN 30.1 pg (27.0-33.0); MEAN CORPUSCULAR HGB CONC 33.3 g/dl (32.0-36.5); MEAN CORPUSCULAR VOLUME 90.4 fl (80.0-96.0); RED BLOOD COUNT 5.01 10^6/uL (4.30-6.10); WHITE BLOOD COUNT 9.4 10^3/uL (4.0-10.0)
[2018-11-26 20:02] LABS: PLATELET COUNT, AUTOMATED 98 10^3/uL (150-450)
[2018-11-26 20:10] LABS: INR 2.37; PROTHROMBIN TIME 25.7 SECONDS (11.8-14.0)
[2018-11-26 20:11] LABS: PARTIAL THROMBOPLASTIN TIME 34.4 SECONDS (25.0-38.4)
[2018-11-26 20:30] LABS: TROPONIN I 8.78 NG/ML (< 0.10)
[2018-11-26 20:41] LABS: ALBUMIN 2.3 GM/DL (3.2-5.2); BILIRUBIN,TOTAL 1.2 MG/DL (0.2-1.0); CALCIUM LEVEL 6.6 MG/DL (8.5-10.1); CREATININE FOR GFR 4.04 MG/DL (0.70-1.30); GLOMERULAR FILTRATION RATE 17.8 (>60); PHOSPHORUS LEVEL 5.2 MG/DL (2.5-4.9); POTASSIUM SERUM 4.3 MEQ/L (3.5-5.1)
[2018-11-26] MEDS: SODIUM BICARBONATE 325 MG TAB NG SCH (21:24)
[2018-11-26 23:54] LABS: ABG BASE EXCESS -10.8 (-2.0-2.0); ABG HCO3 18.1 MEQ/L (22.0-26.0); ABG O2 SATURATION 98.7 % (95.0-99.0); ABG PARTIAL PRESSURE CO2 51.6 mmHg (35.0-45.0); ABG PARTIAL PRESSURE O2 150.5 mmHg (75.0-100.0); ABG STANDARD HCO3 16.1 MEQ/L (22.0-26.0); ABG TOTAL CO2 19.6 MEQ/L (22.0-29.0)
[2018-11-26 23:57] LABS: ABG pH (ARTERIAL) 7.162 UNITS (7.350-7.450)
[2018-11-27] VITALS (25 sets, daily range): BP systolic 81–128; BP diastolic 41–63; O2SAT 100
[2018-11-27 00:12] LABS: INR 2.27; PROTHROMBIN TIME 24.9 SECONDS (11.8-14.0)
[2018-11-27 00:13] LABS: PARTIAL THROMBOPLASTIN TIME 33.4 SECONDS (25.0-38.4)
[2018-11-27 00:22] LABS: HEMATOCRIT 44.4 % (42.0-52.0); HEMOGLOBIN 14.9 g/dl (13.5-17.5); MEAN CORPUSCULAR HEMOGLOBIN 30.1 pg (27.0-33.0); MEAN CORPUSCULAR HGB CONC 33.6 g/dl (32.0-36.5); MEAN CORPUSCULAR VOLUME 89.7 fl (80.0-96.0); RED BLOOD COUNT 4.95 10^6/uL (4.30-6.10); WHITE BLOOD COUNT 12.3 10^3/uL (4.0-10.0)
[2018-11-27 00:23] LABS: PLATELET COUNT, AUTOMATED 99 10^3/uL (150-450)
[2018-11-27 00:45] LABS: ALBUMIN 2.4 GM/DL (3.2-5.2); BILIRUBIN,TOTAL 1.3 MG/DL (0.2-1.0); CALCIUM LEVEL 6.5 MG/DL (8.5-10.1); CREATININE FOR GFR 4.45 MG/DL (0.70-1.30); GLOMERULAR FILTRATION RATE 15.9 (>60); MAGNESIUM LEVEL 1.9 MG/DL (1.8-2.4); PHOSPHORUS LEVEL 5.4 MG/DL (2.5-4.9); POTASSIUM SERUM 4.5 MEQ/L (3.5-5.1); TOTAL PROTEIN 4.9 GM/DL (6.4-8.2)
[2018-11-27] MEDS: PIPERACILLIN/TAZOBACTAM SOD 2.25 GM in D5W MINI-BAG PLUS 50 ML IV SCH ×2 (03:13→11:19)
[2018-11-27] MEDS: PROPOFOL 1,000 MG in IV 1 EA IV SCH ×3 (03:13→17:12)
[2018-11-27] MEDS: HumaLOG INSULIN (NovoLOG) PER UNIT SC SCH ×6 (03:55→23:57)
[2018-11-27 04:16] LABS: ABG BASE EXCESS -9.3 (-2.0-2.0); ABG HCO3 19.1 MEQ/L (22.0-26.0); ABG PARTIAL PRESSURE CO2 51.4 mmHg (35.0-45.0); ABG PARTIAL PRESSURE O2 164.3 mmHg (75.0-100.0); ABG STANDARD HCO3 17.2 MEQ/L (22.0-26.0); ABG TOTAL CO2 20.7 MEQ/L (22.0-29.0)
[2018-11-27 04:18] LABS: ABG pH (ARTERIAL) 7.189 UNITS (7.350-7.450)
[2018-11-27 04:22] LABS: HEMATOCRIT 43.7 % (42.0-52.0); HEMOGLOBIN 14.9 g/dl (13.5-17.5); MEAN CORPUSCULAR HEMOGLOBIN 30.2 pg (27.0-33.0); MEAN CORPUSCULAR HGB CONC 34.1 g/dl (32.0-36.5); MEAN CORPUSCULAR VOLUME 88.6 fl (80.0-96.0); PLATELET COUNT, AUTOMATED 101 10^3/uL (150-450); RED BLOOD COUNT 4.93 10^6/uL (4.30-6.10); WHITE BLOOD COUNT 16.1 10^3/uL (4.0-10.0)
[2018-11-27 04:37] LABS: ANISOCYTOSIS 1+; ATYPICAL LYMPH 2 % (0-5); LYMPHOCYTES 10 % (16-44); MONOCYTES 4 % (0-5); NEUTROPHILS 71 % (28-66)
[2018-11-27 04:38] LABS: PLATELET ESTIMATE DECREASED (NORMAL)
[2018-11-27] MEDS: fentaNYL 100 MCG/2 ML INJECTION (J3010) IV PRN (04:38)
[2018-11-27 04:50] LABS: PARTIAL THROMBOPLASTIN TIME 35.1 SECONDS (25.0-38.4)
[2018-11-27 05:09] LABS: INR 2.27; PROTHROMBIN TIME 24.8 SECONDS (11.8-14.0)
[2018-11-27 05:57] LABS: ALBUMIN 2.4 GM/DL (3.2-5.2); BILIRUBIN,TOTAL 1.6 MG/DL (0.2-1.0); CALCIUM LEVEL 6.7 MG/DL (8.5-10.1); CREATININE FOR GFR 4.84 MG/DL (0.70-1.30); GLOMERULAR FILTRATION RATE 14.4 (>60); MAGNESIUM LEVEL 1.8 MG/DL (1.8-2.4); PHOSPHORUS LEVEL 5.9 MG/DL (2.5-4.9); POTASSIUM SERUM 4.6 MEQ/L (3.5-5.1); TOTAL PROTEIN 5.3 GM/DL (6.4-8.2); TROPONIN I 7.88 NG/ML (< 0.10)
--- NOTE | 2018-11-27 08:05 | REP ---
Portable chest x-ray: Single view 07:30 A film. Comparison study: 03:03 a.m. from this date. Findings: A nasogastric tube is seen in the left upper quadrant advanced into the stomach. Endotracheal tube is noted at the level of proximal clavicles. A left internal jugular central venous line is seen terminating in the central mediastinum. The right internal jugular central venous line has apparently been withdrawn. Consolidation persists in the left lung, more opacity is seen in the left base with air bronchograms on the current film. There is a new consolidation or discoid atelectasis in the right base. There is a suggestion of pneumomediastinum.. Mediastinum is not widened. Heart is not felt to be enlarged. Electronically Signed by Jaylon Hwang MD 11/27/2018 07:56 A
--- NOTE | 2018-11-27 08:06 | REPVR ---
PROCEDURE INFORMATION: Exam: CT Head Without Contrast Exam date and time: 11/25/2018 10:54 PM Clinical history: 38 years old, male; Altered mental status/memory loss; Additional info: AMS TECHNIQUE: Imaging protocol: Computed tomography of the head without contrast. Radiation optimization: All CT scans at this facility use at least one of these dose optimization techniques: automated exposure control; mA and/or kV adjustment per patient size (includes targeted exams where dose is matched to clinical indication); or iterative reconstruction. COMPARISON: No relevant prior studies available. FINDINGS: Brain: Diffuse cerebral edema with small ventricles, and mild moderately effaced basilar cisterns. Midline shift: No hemorrhage or midline shift. Ventricles: Normal. No ventriculomegaly. Bones/joints: Unremarkable. No acute fracture. Sinuses: Visualized sinuses are unremarkable. No fluid levels. Mastoid air cells: Visualized mastoid air cells are well aerated. Soft tissues: Unremarkable. IMPRESSION: Diffuse cerebral edema with small ventricles, and mild moderately effaced basilar cisterns. Correlate for hypoxic ischemic or toxic encephalopathy, or other numerous causes. THIS REPORT CONTAINS FINDINGS THAT MAY BE CRITICAL TO PATIENT CARE. The study was personally discussed on the telephone with care provider TERRY PHILLIP on 11/26/2018 12:53 AM EDT. The results were understood and acknowledged. Electronically signed by: Jorge Miranda On 11/26/2018 00:53:20 AM
[2018-11-27 08:15] LABS: ABG BASE EXCESS -9.8 (-2.0-2.0); ABG HCO3 19.1 MEQ/L (22.0-26.0); ABG O2 SATURATION 96.4 % (95.0-99.0); ABG PARTIAL PRESSURE O2 97.7 mmHg (75.0-100.0); ABG STANDARD HCO3 16.7 MEQ/L (22.0-26.0); ABG TOTAL CO2 20.8 MEQ/L (22.0-29.0)
[2018-11-27] MEDS: LACRILUBE (AKWA TEARS) OPHTH OINT 3.5 GM OU SCH ×3 (08:17→21:31)
[2018-11-27] MEDS: SODIUM BICARBONATE 325 MG TAB NG SCH (08:18)
[2018-11-27] MEDS: PANTOPRAZOLE 40MG INJ (PROTONIX) (C9113) IV SCH (08:18)
[2018-11-27] MEDS: CHLORHEXIDINE GLUCONATE 0.12 % 15ML UDC (PERIDEX ORAL RINSE) MT SCH ×2 (08:18→21:05)
[2018-11-27 08:19] LABS: ABG pH (ARTERIAL) 7.167 UNITS (7.350-7.450)
--- NOTE | 2018-11-27 08:23 | ECGEPIP ---
[facility] - ED Test Date: 2018-11-25 Pat Name: SHIV PELAEZ Department: Room: [place] [address] Gender: Male Paper Deliverer: roseann : 1980 Requested By: TERRY PHILLIP Order Number: [id number] Reading MD: Priyanka Howard Measurements Intervals Brooten Rate: 94 P: 84 IA: 226 QRS: 65 QRSD: 174 T: 100 QT: 487 QTc: 611 Interpretive Statements SINUS RHYTHM WITH FIRST DEGREE AV BLOCK RIGHT ATRIAL ENLARGEMENT LEFT ATRIAL ENLARGEMENT IVCD NSTTW abnormalities PROLONGED QTC CLINICAL CORRELATION Electronically Signed on 11-27-2018 8:22:40 EDT by Priyanka Howard
[2018-11-27 08:28] LABS: HEMATOCRIT 42.1 % (42.0-52.0); HEMOGLOBIN 14.4 g/dl (13.5-17.5); MEAN CORPUSCULAR HEMOGLOBIN 30.4 pg (27.0-33.0); MEAN CORPUSCULAR HGB CONC 34.2 g/dl (32.0-36.5); MEAN CORPUSCULAR VOLUME 88.8 fl (80.0-96.0); RED BLOOD COUNT 4.74 10^6/uL (4.30-6.10); WHITE BLOOD COUNT 17.3 10^3/uL (4.0-10.0)
[2018-11-27 08:29] LABS: PLATELET COUNT, AUTOMATED 93 10^3/uL (150-450)
[2018-11-27 08:41] LABS: INR 2.21; PROTHROMBIN TIME 24.4 SECONDS (11.8-14.0)
[2018-11-27 08:42] LABS: PARTIAL THROMBOPLASTIN TIME 33.1 SECONDS (25.0-38.4)
[2018-11-27 09:04] LABS: ALBUMIN 2.4 GM/DL (3.2-5.2); BILIRUBIN,TOTAL 1.7 MG/DL (0.2-1.0); CALCIUM LEVEL 6.9 MG/DL (8.5-10.1); CREATININE FOR GFR 5.29 MG/DL (0.70-1.30); PHOSPHORUS LEVEL 6.7 MG/DL (2.5-4.9); POTASSIUM SERUM 4.7 MEQ/L (3.5-5.1); TOTAL PROTEIN 5.3 GM/DL (6.4-8.2)
[2018-11-27] MEDS: HEPARIN SOD (PORCINE) 5000 UNITS/ML VIAL SQ SCH ×3 (09:29→21:32)
[2018-11-27] MEDS: ALBUTEROL SULFATE 2.5 MG/0.5 ML INH NEB SOLN NEB SCH ×2 (09:52→19:27)
[2018-11-27] MEDS ORDERED: NS 500 ML IV SCH (10:00)
[2018-11-27] MEDS ORDERED: SODIUM CHLORIDE 0.9% INJ 10 ML SYR IV PRN ×3 (10:00→15:00)
[2018-11-27 11:53] LABS: ABG BASE EXCESS -9.3 (-2.0-2.0); ABG HCO3 18.5 MEQ/L (22.0-26.0); ABG O2 SATURATION 97.1 % (95.0-99.0); ABG PARTIAL PRESSURE CO2 47.5 mmHg (35.0-45.0); ABG PARTIAL PRESSURE O2 98.2 mmHg (75.0-100.0); ABG STANDARD HCO3 17.1 MEQ/L (22.0-26.0)
[2018-11-27 11:54] LABS: ABG pH (ARTERIAL) 7.209 UNITS (7.350-7.450)
[2018-11-27 12:03] LABS: HEMATOCRIT 40.3 % (42.0-52.0); MEAN CORPUSCULAR HEMOGLOBIN 30.6 pg (27.0-33.0); MEAN CORPUSCULAR HGB CONC 34.7 g/dl (32.0-36.5); MEAN CORPUSCULAR VOLUME 88.2 fl (80.0-96.0); PLATELET COUNT, AUTOMATED 100 10^3/uL (150-450); RED BLOOD COUNT 4.57 10^6/uL (4.30-6.10); WHITE BLOOD COUNT 17.5 10^3/uL (4.0-10.0)
[2018-11-27 12:12] LABS: INR 2.35; PROTHROMBIN TIME 25.6 SECONDS (11.8-14.0)
[2018-11-27 12:15] LABS: PARTIAL THROMBOPLASTIN TIME 33.6 SECONDS (25.0-38.4)
[2018-11-27 12:49] LABS: ALBUMIN 2.4 GM/DL (3.2-5.2); BILIRUBIN,TOTAL 1.7 MG/DL (0.2-1.0); CALCIUM LEVEL 6.6 MG/DL (8.5-10.1); CREATININE FOR GFR 5.63 MG/DL (0.70-1.30); GLOMERULAR FILTRATION RATE 12.1 (>60); MAGNESIUM LEVEL 1.9 MG/DL (1.8-2.4); POTASSIUM SERUM 4.7 MEQ/L (3.5-5.1); TOTAL PROTEIN 4.8 GM/DL (6.4-8.2)
[2018-11-27] MEDS ORDERED: HEPARIN 1,000 UNITS/ML 10ML VIAL (FOR RADIOLOGY& DIALYSIS ONLY) IV PRN ×2 (13:00→15:00)
[2018-11-27] MEDS: CALCIUM GLUCONATE 1,000 MG in NS 100 ML IV SCH ×2 (13:31→14:41)
--- NOTE | 2018-11-27 13:31 | CCN ---
DATE: 11/27/2018 Patient is a 38-year-old male who initially presented to [facility] ER due to cardiopulmonary arrest and altered mental status. Left sided IJ central line and a right sided femoral arterial line was placed. The patient is currently sedated for ventilation. No information was able to be obtained from the patient. The patient head CT without contrast that was obtained from 11/26 had formal report reading that showed diffuse cerebral edema with small ventricles. The patient had completed hypothermia protocol and is now being maintained normothermic. PHYSICAL EXAMINATION: Vitals: Temperature 98.8, pulse 102, respiratory rate 35, blood pressure 94/52, MAP 63, pulse oximetry is 94% on ventilator. Tidal volume 550, respiratory rate 35, PEEP 12, FiO2 60%. GENERAL: Patient continues to be non-alert and nonresponsive. Appears to be sedated and not able to follow any commands or answer any questions. HEENT: Head normocephalic, left IJ central line placed. RIJ triple lumen removed ET and OG tube in place. Mucosa appears to be mildly dry HEART: Tachycardic, regular rhythm, no murmur. LUNGS: Course ventilator breath sounds auscultated bilaterally. Rhonchi was again noted in the left upper lung field. ABDOMEN: Soft. No guarding or distention noted all four quadrants. EXTREMITIES: Right sided femoral arterial line noted in place. No signs of active bleeding. NEUROLOGIC: The patient not responsive, not responsive to painful stimuli. Pupils are small and sluggish. No gag reflex. IMAGING: Chest x-ray from 11/27/2018 showed ET tube at level of proximal clavicles. Left sided IJ central venous line seen terminating in the central mediastinum. Consolidation persists in the left lung with more opacities seen in the left base with air bronchograms on the current film. No consolidations or discoid atelectasis in the right base. There is suggestion of some pneumomediastinum. Head CT without contrast showed diffuse cerebral edema with small ventricles and mild to moderately diseased basilar cisterns. Correlate for hypoxic ischemic or toxic encephalopathy. LABS: CBC WBC 17.3, hemoglobin 14.4, hematocrit 42.1, platelets 93. CMP sodium 136, potassium 4.7, chloride 96, carbon dioxide 21, anion gap 19, BUN 5.29, GFR 13, fasting glucose 94, lactic acid 2.3, calcium 6.9, phosphorous 6.7, magnesium 2.0, total bilirubin 1.7, AST 4690, ALT 3383, troponin from 11/27/2018 morning 7.88. Coags PT 24.4, INR 2.21, PTT 33.1. ABG pH of 7.167, CO2 54, pO2 97, bicarb 19, bicarbonate standard 16.7. Hepatitis B surface antibody negative. Other hepatitis B and C workup pending. Methicillin-resistant Staphylococcus aureus (MRSA) screen negative. ASSESSMENT/PLAN: Patient is a 38-year-old male with a past medical history of diabetes, who presented to [facility] ED due to cardiopulmonary arrest episodes with altered mental status who achieved ROSC upon admission. The patient's right IJ central line had been removed after the left sided IJ central venous line was placed. The patient also had a right sided femoral arterial line placed after ICU admission. Patient was started on hypothermia protocol which he completed and is now in the maintenance temperature phase. 1. Neurology. Metabolic encephalopathy from metabolic acidosis versus anoxic brain injury with cerebral edema on CT. Patients urine toxicology was positive for opiates and cocaine on admission. Patient was found on the floor unresponsive, unclear duration of time. - The patient's formal head CT results report returned this morning and showed diffuse cerebral edema with small ventricles, mild to moderately diseased basilar cisterns. - The patient is status post hypothermia protocol and active warming. He is not responsive to painful stimuli, pupils small and sluggish, no gag reflex. As he is also significantly acidotic would be difficult to fully access his neurologic function/prognosis. 2. Cardiac. Status post cardiopulmonary arrest with elevated troponin. - Elevated cardiac enzyme likely due to periods of cardiac ischemia as well as 2/2 to multiple rounds of CPR . Patient likely in septic shock. ECHO was done which showed normal EF, no dilated RV, no significant valvular pathology. Less likely cardiogenic shock - Currently on Levophed at 9mcg/kg/min. Adjust to maintain MAP above 65. - The patient's troponin appears to be plateaued with troponin with trop at 7.88 this morning compared to 8.78 yesterday. 3. Pulmonary. Acute anion gap metabolic acidosis with a respiratory acidosis secondary to cardiopulmonary arrest. - CXR also with opacities in left lung, likely aspiration PNA. Patient also with leukocytosis, was started on broad spectrum antibiotics on admission with zosyn - WBC continues to increase, will give one dose of vancomycin although MRSA screen neg. - sputum culture pending - persistent acidosis secondary to metabolic acidosis from ARF and respiratory acidosis. Patient is difficult to ventilate. Was paralyzed with nimbex during hypothermia phase which was discontinued after rewarming. - The patient remains intubated on PRVC at tidal volume of 550, respiratory rate 35. PEEP was 12 with FiO2 at 60%. Cont to taper PEEP and FiO2 for O2 sat above 90%. - vent bundle, HOB elevation, chlorhexadine mouth wash. Daily CXRs 3. GI- Transaminitis likely 2/2 shock liver. s/p NAC protocol. -abnormal liver function tests including elevated total bilirubin. ALT and AST improved compared to yesterday. -The patient had hepatitis B and C panels pending except for negative hepatitis B surface antibody. - Continue OG tube and n.p.o. - The patient's lactic acidosis improved compared to yesterday at 2.4 and 2.3 today. - cont GI ppx 4. Renal/endocrine. UYRY with metabolic acidosis and respiratory acidosis; electrolyte disturbances including hypocalcemia and hyperphosphotemia. - Kidney injury continues to worsen with creatinine of 5.29 today. Patient has also had decreased urine output - Nephrology consulted for CRRT as the patient also has persistent metabolic acidosis despite improving lactic acidosis likely secondary to ARF. He was started on PO sodium bicarb yesterday with only slight improvement. Patient respiratory acidosis is also contributing but we are unable to compensate further with the ventilator. - The patient will continue to be on sodium bicarb 650 mg three times a day through until CRRT started. Will check labs as per CRRT protocol. 5. Heme/onc. Abnormal coagulopathy labs including elevated PTT, PT, and INR which may be secondary to shock liver, and heparin may also contribute to the elvated PTT. Leukocytosis with neutrophil predominance secondary to inflammation/infection process. Patient has a dropped hemoglobin which may be secondary to blood loss from procedures. Continue to follow up CBC. Code status- full code Discussed GOC with patients family and his likely poor prognosis for neurologic recovery given initial head CT. Patient's and other extended family members would like to continue with trial of CRRT and then access his response. if no improvement in neurologic function they had stated that patient would not want to be maintained on a ventilator Total critical care time spent not including any procedures 50mins. I, Sulma Carter, have conducted independent history and examination and agree with the above plan as detailed and discussed. TESSA
[2018-11-27] MEDS: SODIUM CHLORIDE 0.9% INJ 10 ML SYR IV SCH ×2 (13:32→22:00)
--- NOTE | 2018-11-27 14:06 | REP ---
CHEST, PORTABLE: AP portable view of the chest is performed and compared to a prior study of the same day. There has been placement of a right central venous catheter. The tip is in the superior vena cava. There is no pneumothorax Endotracheal tube is seen with the tip approximately 7.9 cm above the george. Nasogastric tube traverses into the stomach. Left central venous catheter is again noted with the tip in the midline. Mild patchy parenchymal opacity is seen in the right base and there is diffuse parenchymal opacity in the left lung, unchanged. Heart and mediastinum are unchanged. Electronically Signed by Anup Lobato MD 11/27/2018 04:37 P
--- NOTE | 2018-11-27 14:14 | CR ---
DATE OF CONSULTATION: 11/27/2018 REQUESTING PHYSICIAN: Sulma Carter MD CONSULTING PHYSICIAN: Mack Alcantara MD REASON FOR CONSULTATION: Management of acute oliguric renal failure and severe metabolic acidosis. CHIEF COMPLAINT: The patient was brought into the emergency room on 11/25/2018 after cardiopulmonary arrest. NOTE: History was obtained from the patient's chart and from the medical team. The patient himself is unable to provide any reliable history. HISTORY OF PRESENT ILLNESS: Mr. Saran Gleason is a 38-year-old male with past medical history of diabetes mellitus type 2, not taking any medications at home. The patient was recently released from the [facility] about 3 weeks ago, and he recently , and he was living with his new , and saw him awake in the morning at around 7 o'clock. She went outside the home, but then she came back at around 8 o'clock in the evening . She found him unresponsive on the floor. Emergency medical services (EMS) was called. They did the cardiopulmonary resuscitation (CPR) on him, and the patient was brought to the emergency room, in the evening, he had another cardiopulmonary arrest right when the EMS arrived in the emergency room and second time he was resuscitated. He was given more epinephrine and bicarbonate with return of spontaneous circulation. Hypothermia protocol was initiated. The patient was transferred to the intensive care unit (ICU). He was cooled down. He was found to have multiorgan failure. There was diffuse cerebral edema on the CAT scan, as well. The patient's creatinine on arrival in the emergency room was 3.8, and with the hypothermia protocol, the patient is being warmed, but he is still oliguric. His creatinine has bumped up to 5.6. He has high anion gap metabolic acidosis and respiratory acidosis. Nephrology service was called for further help in the management of this patient with worsening metabolic acidosis, acute oliguric renal failure. I saw and evaluated the patient at the bedside in the ICU today morning. He is unable to provide any history, and he is unable to provide any review of systems. PAST MEDICAL HISTORY: Past medical history of diabetes mellitus type 2, not on any medications. PAST SURGICAL HISTORY: The patient had open reduction and pinning of the right metacarpal joint, and he still has plaster of Jennifer on the right hand, and he had hernia repair in the year 1999. ALLERGIES: No known drug allergies. HOME MEDICATIONS: No home medications are noted. FAMILY HISTORY: Unknown family history at this time. SOCIAL HISTORY: The [facility]. He has been living with his current for about 3 weeks. REVIEW OF SYSTEMS: No reliable review of system is obtainable. The patient is intubated and sedated. PHYSICAL EXAMINATION: The patient is intubated, sedated, currently on Levophed for his blood pressure control. Vital signs: Temperature is 98.8 degrees Fahrenheit, blood pressure 94/52, pulse is 102, respiratory rate of 35, saturating 94% on the vent at 50% FIO2. Head and neck examination: The patient has an endotracheal tube (ETT) and orogastric tube (OGT). Eyes are closed. Pupils are myotic and very sluggish response to light. Doll's eye reflex is not present. Neck is supple. He has a triple-lumen catheter in the left internal jugular (vein) (IJ). Cardiovascular: S1, S2, tachycardia. No edema of the bilateral lower extremities. Respiratory: Chest is clear to auscultation bilaterally. Bilateral equal air entry. The patient is dependent on the vent. No active rales or rhonchi. Abdomen: Soft, positive bowel sounds. No tenderness could be elicited. Genitourinary: No hernias are noted. He has an indwelling Goyal catheter. Very small amount of urine in the bag was noted. Musculoskeletal: No clubbing or cyanosis. He has a plaster of Jennifer on the right forearm. 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 Very sluggish pupillary response to light. The patient is sedated with propofol, as well. Skin: No rashes or ulcers. LABORATORY REVIEW: Complete blood count (CBC) showed a WBC 17.5, hemoglobin is 14, platelets are 100. INR is 2.3. Urinalysis done on arrival showed it was cloudy, high urobilinogen, 2+ protein. Arterial blood gas (ABG) done today morning showed pH of 7.16, pCO2 of 54, pO2 97, bicarbonate is 19, oxygen (O2) saturation is 96%. Basic metabolic profile (BMP) done today morning showed sodium 135, potassium 4.7, chloride 95, bicarbonate 22, BUN 79, creatinine is 5.6, calcium 6.6, ionized calcium is 3.4, phosphorus is 7, magnesium is 1.9, total bilirubin is 1.7, AST is 3873, ALT 3205, alkaline phosphatase is 61, protein is 4.8, albumin 2.4. CPK on arrival was 4099. Lactic acid is 2.8 in the morning. Toxicology: Urine was positive for opiates and cocaine on arrival. IMAGING: Chest x-ray shows no acute infiltrate. CAT scan of the head done on the evening of 11/25/2018 shows diffuse cerebral edema with small ventricles and mild moderately effaced basilar cisterns. CURRENT INPATIENT MEDICATIONS: The patient's medications were all reviewed by me. He was given acetylcysteine on arrival. He is on propofol. He is on Levophed at 10 mcg. He is getting Zosyn 2.25 grams intravenous (IV) every 8 hours, albuterol as needed, artificial tears, fentanyl as needed for pain, heparin subcutaneously, Versed as needed for agitation, Protonix 40 mg IV daily, sodium bicarbonate 650 mg via OGT three times a day and I am stopping it for now. ASSESSMENT: A 38-year-old male, status post cardiac arrest with polysubstance abuse, multiorgan failure, anoxic brain injury, vent-dependent respiratory failure, acute oliguric renal failure with acute uncompensated respiratory acidosis with high anion gap metabolic acidosis. PLAN: 1. Acute renal failure. It is secondary to acute tubular injury and cardiac arrest with unknown downtime. The patient is oliguric and has metabolic acidosis. I have discussed with the patient's family members, including his , and they agreed to start continuous venovenous hemodiafiltration (CVVHDF) at this time. I have requested the critical care team to place a temporary dialysis catheter, and CVVHDF will be started once the catheter is placed. 2. Acute respiratory acidosis with high anion gap metabolic acidosis. It is multifactorial. The patient is vent-dependent. Vent management is as per primary team. Metabolic acidosis will be managed with CVVHDF. Some of that is because of lactic acidosis secondary to cardiac arrest and inability of the patient to metabolize the lactate because of a shock liver, as well. The patient's volume status is optimal. Central venous pressure (CVP) was checked, and it was 11. 3. Leukocytosis. The patient's cultures are all negative. He is empirically being treated with Zosyn. I have increased the Zosyn dose to 3.375 grams IV every 6 hours, which is the dose according to CVVHDF protocol. 4. Hypocalcemia. Calcium will be managed according to CVVHDF protocol. The patient will get IV calcium gluconate during dialysis. 5. Hyperphosphatemia. It is secondary to acute renal failure, and some of that is because of mild rhabdomyolysis. Phosphorus level will improve with dialysis. 6. Shock liver. The patient came in with elevated AST, ALT, and total bilirubin. Liver enzymes are slowly improving. Keep the patient's systolic blood pressures above 90. 7. Polysubstance abuse. The patient's toxicology came back positive for cocaine and opiates, and that is the most likely cause of his cardiac arrest, as well. 8. Status post cardiac arrest. The patient is currently requiring Levophed at 10 mcg. Hopefully, his requirement of pressors will decreased once his acidosis improves. No need of oral bicarbonate administration at this time since acidosis would get better with dialysis. 9. Anoxic brain injury. The patient has diffuse cerebral edema on the CAT scan. I have discussed these findings with the patient's family members before starting the CVVHDF, and I explained to them that dialysis would help improve the electrolytes and acidosis. It might not reverse the anoxic brain injury. Family members want to try the dialysis for 24-48 hours until his laboratories get better; and after that, they will discuss the further goals of care. The family is receptive to stopping the aggressive management if his neurological status does not get better after dialysis treatment. Thank you for involving me in the care of this patient. I shall be happy to follow the patient along with you tomorrow morning. TOTAL CRITICAL CARE TIME SPENT: In the management of this patient today morning at the bedside in the ICU was 1 hour and 15 minutes. That does not include any procedures. MTDD
--- NOTE | 2018-11-27 14:39 | RO ---
DATE OF PROCEDURE: 11/27/2018 PROCEDURE: Hemodialysis catheter insertion. INDICATION: Hemodialysis access. PREPROCEDURE DIAGNOSIS: Acute renal failure. POSTPROCEDURE DIAGNOSIS: Acute renal failure. ATTENDING PHYSICIAN: Dr. Carter PULL OUT OPERATOR: No field assistant. ANESTHESIA: No anesthesia. CONSENT: Consent was obtained from the patient's prior to the procedure. Indication, risks and benefits were explained at length. PROCEDURE SUMMARY: Central line insertion practice form was completed by an independent observer starting with the first hand wash prior starting sterile technique. A time out was performed prior to the procedure. Full sterile technique was maintained throughout procedure including surgical cap, mask with protective eye wear, full gown and sterile gloves. The patient was placed in Trendelenburg position. The right neck region was prepped using chlorhexidine scrub and draped in a sterile fashion using a fenestrated drape and a sterile probe cover employed. The right internal jugular vein was identified using the ultrasound. Using real time out of plane guidance, the introducer needle was inserted into the internal jugular vein under direct ultrasound visualization. Venous blood was drawn. The syringe was removed and a guidewire was advanced into the introducer needle. After the guidewire was advanced into the introducer needle, the introducer needle was removed over the guidewire. A small incision was made at skin surface with a scalpel and a dilator was exchanged over the guidewire. After appropriate double dilation was obtained, the dilator was exchanged over wire for a dual lumen hemodialysis catheter. The wire was removed and the catheter was sutured in place. Sterile chlorhexidine impregnated dressing was placed over the catheter insertion site. The patient tolerated the procedure without any hemodynamic compromise. At time of procedure completion, all ports were aspirated and flushed properly. Heparin was instilled in the dialysis catheter post insertion. A postprocedure chest x-ray was ordered.
[2018-11-27] MEDS: PIPERACILLIN/TAZOBACTAM SOD 3.375 GM in D5W MINI-BAG PLUS 50 ML IV SCH ×2 (14:41→22:26)
[2018-11-27] MEDS: NOREPINEPHRINE BITARTRATE 8 MG in D5W 492 ML IV SCH (14:43)
[2018-11-27] MEDS ORDERED: HEPARIN SOD (PORCINE) 5000 UNITS/ML VIAL IV ONE (17:00)
[2018-11-27] MEDS: HEPARIN DRIP XX SCH ×4 (17:00→21:31)
[2018-11-27 17:57] LABS: IONIZED CALCIUM 3.6 MG/DL (4.5-5.3)
[2018-11-27 18:05] LABS: HEMATOCRIT 37.5 % (42.0-52.0); HEMOGLOBIN 13.1 g/dl (13.5-17.5); MEAN CORPUSCULAR HEMOGLOBIN 30.5 pg (27.0-33.0); MEAN CORPUSCULAR HGB CONC 34.9 g/dl (32.0-36.5); MEAN CORPUSCULAR VOLUME 87.4 fl (80.0-96.0); RED BLOOD COUNT 4.29 10^6/uL (4.30-6.10); WHITE BLOOD COUNT 19.1 10^3/uL (4.0-10.0)
[2018-11-27 18:09] LABS: PLATELET COUNT, AUTOMATED 95 10^3/uL (150-450)
[2018-11-27 18:14] LABS: ABG HCO3 17.8 MEQ/L (22.0-26.0); ABG O2 SATURATION 96.3 % (95.0-99.0); ABG PARTIAL PRESSURE CO2 41.7 mmHg (35.0-45.0); ABG PARTIAL PRESSURE O2 94.1 mmHg (75.0-100.0); ABG STANDARD HCO3 17.3 MEQ/L (22.0-26.0); ABG TOTAL CO2 19.1 MEQ/L (22.0-29.0)
[2018-11-27 18:17] LABS: ABG pH (ARTERIAL) 7.248 UNITS (7.350-7.450)
[2018-11-27 18:19] LABS: INR 2.17; PARTIAL THROMBOPLASTIN TIME 41.5 SECONDS (25.0-38.4)
[2018-11-27 18:47] LABS: CALCIUM LEVEL 6.7 MG/DL (8.5-10.1); CREATININE FOR GFR 5.53 MG/DL (0.70-1.30); GLOMERULAR FILTRATION RATE 12.4 (>60); MAGNESIUM LEVEL 1.8 MG/DL (1.8-2.4); PHOSPHORUS LEVEL 5.5 MG/DL (2.5-4.9); POTASSIUM SERUM 4.4 MEQ/L (3.5-5.1)
[2018-11-27] MEDS ORDERED: VANCOMYCIN HCL 1,000 MG, VIAL MATE ADAPTER 1 EACH in D5W 250 ML IV ONE ×2 (20:00→22:00)
--- NOTE | 2018-11-27 20:52 | PHACANCOPD ---
PHARMACY VANCOMYCIN DOSING Pt Demographics Demographics Patient Age:38 , Weight:99.100 , Gender: male Adjusted Body Weight Date: 11/27/18, Adjusted Body Weight: [86] Kg Events Past 24 Hours Events Past 24 Hours: NO: Dialysis, Diuretic Therapy, Change in CrCl, Fever, Elevation in WBC, Pending Diagnostics, Pending Procedures, Other Vancomycin Vancomycin indication: SEVERE SEPSIS, PNEUMONIA Vancomycin Target Ranges: 15-20 mcg/ml Vancomycin Load Y/N: Yes Load Dose Date Time Vancomycin Load Dose: 2G Date: 11/27/18 Time: 20:00 Vancomycin Dose Date: 11/27/18. Current Vancomycin Dose: [1G IV Q24H] Intermittent Dosing?: No Labs Labs Item Value Date Time White Blood Count 17.3 10^3/uL H 11/27/18 0756 White Blood Count 17.5 10^3/uL H 11/27/18 1137 White Blood Count 19.1 10^3/uL H 11/27/18 1749 Creatinine 5.63 MG/DL H 11/27/18 1137 Creatinine 5.53 MG/DL H 11/27/18 1749 Micro Microbiology 11/26/18 Blood Culture - Preliminary, Resulted No growth after 24 hours . All specim... 11/25/18 Gram Stain - Final, Resulted 11/25/18 Sputum Culture, Resulted Pending 11/25/18 Urine Culture - Final, Complete 11/25/18 Blood Culture - Preliminary, Resulted No growth after 24 hours . All specim... Creatinine Clearance Date:11/27/18. Creatinine Clearance: [22ML/MIN]. Assessment and Plan Maintaining Current Dose?: Yes Reason for dose change: No Dose Change Pharmacist Note Pharmacist Note Date: 11/27/18. Pharmacist note:PT is a 38 year old male being treated for Severe sepsis and pneumonia goal trough 15-20mcg/ml. The patient has not been treated with vancomycin here at [facility] in the past. To achieve goal the patient will start a 2g loading dose 11/27/18 @ 20:00. Maintenance therapy will consist of 1g IV every 24 hours. We will continue to monitor and adjust the dose as needed. BERNARDINO [facility] Nov 27, 2018 20:52
[2018-11-27] MEDS ORDERED: MAG SULF 1GM/100ML (MAG RUN) 1 GM in IV 1 EA IV ONE (21:00)
[2018-11-27 23:46] LABS: IONIZED CALCIUM 3.9 MG/DL (4.5-5.3)
[2018-11-27] MEDS: CALCIUM GLUCONATE 1,000 MG in NS MINI-BAG PLUS 100 ML IV SCH (23:56)
[2018-11-28] VITALS (18 sets, daily range): BP systolic 76–131; BP diastolic 44–80
[2018-11-28 00:14] LABS: CALCIUM LEVEL 6.9 MG/DL (8.5-10.1); CREATININE FOR GFR 5.06 MG/DL (0.70-1.30); GLOMERULAR FILTRATION RATE 13.7 (>60); MAGNESIUM LEVEL 2.1 MG/DL (1.8-2.4); PHOSPHORUS LEVEL 3.8 MG/DL (2.5-4.9); POTASSIUM SERUM 4.1 MEQ/L (3.5-5.1)
[2018-11-28] MEDS: CALCIUM GLUCONATE 1,000 MG in NS MINI-BAG PLUS 100 ML IV SCH (00:19)
[2018-11-28] MEDS: HEPARIN DRIP XX SCH ×5 (00:28→08:48)
[2018-11-28] MEDS ORDERED: CALCIUM GLUCONATE 1,000 MG in NS 100 ML IV ONE (00:45)
[2018-11-28] MEDS: ALBUTEROL SULFATE 2.5 MG/0.5 ML INH NEB SOLN NEB SCH ×2 (01:31→07:11)
[2018-11-28 02:36] LABS: ABG BASE EXCESS -6.7 (-2.0-2.0); ABG HCO3 19.5 MEQ/L (22.0-26.0); ABG O2 SATURATION 95.8 % (95.0-99.0); ABG PARTIAL PRESSURE CO2 41.8 mmHg (35.0-45.0); ABG PARTIAL PRESSURE O2 87.6 mmHg (75.0-100.0); ABG TOTAL CO2 20.8 MEQ/L (22.0-29.0); ABG pH (ARTERIAL) 7.287 UNITS (7.350-7.450)
[2018-11-28] MEDS ORDERED: NS 1,000 ML IV ONE (02:45)
[2018-11-28] MEDS: PIPERACILLIN/TAZOBACTAM SOD 3.375 GM in D5W MINI-BAG PLUS 50 ML IV SCH ×2 (03:03→08:32)
[2018-11-28] MEDS: NOREPINEPHRINE BITARTRATE 8 MG in D5W 492 ML IV SCH ×2 (03:03→07:39)
[2018-11-28] MEDS: HumaLOG INSULIN (NovoLOG) PER UNIT SC SCH ×2 (04:01→08:31)
[2018-11-28] MEDS: HEPARIN SOD (PORCINE) 5000 UNITS/ML VIAL SQ SCH (04:46)
[2018-11-28] MEDS: SODIUM CHLORIDE 0.9% INJ 10 ML SYR IV SCH (04:47)
[2018-11-28 05:21] LABS: IONIZED CALCIUM 3.9 MG/DL (4.5-5.3)
[2018-11-28 05:22] LABS: HEMATOCRIT 33.3 % (42.0-52.0); HEMOGLOBIN 11.5 g/dl (13.5-17.5); MEAN CORPUSCULAR HEMOGLOBIN 29.7 pg (27.0-33.0); MEAN CORPUSCULAR HGB CONC 34.5 g/dl (32.0-36.5); RED BLOOD COUNT 3.87 10^6/uL (4.30-6.10); WHITE BLOOD COUNT 20.2 10^3/uL (4.0-10.0)
[2018-11-28 05:24] LABS: PLATELET COUNT, AUTOMATED 88 10^3/uL (150-450)
[2018-11-28 05:36] LABS: ABG BASE EXCESS -7.1 (-2.0-2.0); ABG O2 SATURATION 95.4 % (95.0-99.0); ABG PARTIAL PRESSURE CO2 34.8 mmHg (35.0-45.0); ABG PARTIAL PRESSURE O2 85.2 mmHg (75.0-100.0); ABG STANDARD HCO3 18.7 MEQ/L (22.0-26.0); ABG pH (ARTERIAL) 7.331 UNITS (7.350-7.450)
[2018-11-28 05:44] LABS: PHOSPHORUS LEVEL 3.3 MG/DL (2.5-4.9)
[2018-11-28 05:45] LABS: ATYPICAL LYMPH 1 % (0-5); LYMPHOCYTES 7 % (16-44); METAMYELOCYTES 6 % (0-0); MONOCYTES 1 % (0-5); NEUTROPHILS 74 % (28-66); PLATELET ESTIMATE DECREASED (NORMAL)
[2018-11-28 05:48] LABS: DOHLE BODIES 1+
[2018-11-28 05:57] LABS: ALBUMIN 2.1 GM/DL (3.2-5.2); BILIRUBIN,TOTAL 1.6 MG/DL (0.2-1.0); CALCIUM LEVEL 6.9 MG/DL (8.5-10.1); CREATININE FOR GFR 4.56 MG/DL (0.70-1.30); GLOMERULAR FILTRATION RATE 15.5 (>60); POTASSIUM SERUM 4.1 MEQ/L (3.5-5.1); TOTAL PROTEIN 4.2 GM/DL (6.4-8.2)
[2018-11-28] MEDS ORDERED: CALCIUM GLUCONATE 1,000 MG in NS MINI-BAG PLUS 100 ML IV SCH (08:00)
--- NOTE | 2018-11-28 08:19 | REP ---
Portable chest x-ray: Single view. History: Intubated patient. Comparison study: 12:32 p.m. film on November 27, 2018. Findings: Nasogastric tube remains in place. Bilateral internal jugular central venous catheters are noted in place terminating to the right of midline in the mediastinum. Endotracheal tube remains in good position at the level of the proximal clavicles. There is hazy opacity in the left base obscuring left hemidiaphragm and the descending thoracic aorta consistent with left pleural effusion essentially unchanged. Pulmonary vasculature is somewhat cephalized. Impression: Left effusion. Unchanged from yesterday's radiograph. Electronically Signed by Jaylon Hwang MD 11/28/2018 09:37 A
[2018-11-28] MEDS ORDERED: CALCIUM GLUCONATE 1,000MG/10ML VIAL (100MG/ML) (J0610) As Ordered ONE (08:25)
[2018-11-28] MEDS: PANTOPRAZOLE 40MG INJ (PROTONIX) (C9113) IV SCH (08:30)
[2018-11-28] MEDS: LACRILUBE (AKWA TEARS) OPHTH OINT 3.5 GM OU SCH (08:32)
[2018-11-28] MEDS: CHLORHEXIDINE GLUCONATE 0.12 % 15ML UDC (PERIDEX ORAL RINSE) MT SCH (08:32)
[2018-11-28] MEDS ORDERED: fentaNYL 100 MCG/2 ML INJECTION (J3010) IV ONE (11:25)
--- NOTE | 2018-11-28 11:55 | DS.PDOC ---
Discharge Summary General Date of Admission Nov 26, 2018 at 00:39 Date of Discharge 11/28/18 Discharge Summary PROCEDURES PERFORMED DURING STAY: Left sided central venous triple lumen catheter. Right sided central venous line placement and removal. Right sided femoral arterial line placement. ET tube placement and OG tube placement. Right IJ hemodialysis catheter placement ADMITTING DIAGNOSES: 1. Status post cardiopulmonary arrest 2. Metabolic encephalopathy 3. Leukocytosis 4. Shock liver 5. YURY 6. Elevated troponin 6. Acute respiratory failure requiring intubation with ventilator 7. Shock, unspecified likely septic shock 8. Pneumonia DISCHARGE DIAGNOSES: 1. Palliative extubation 2. Metabolic encephalopathy and possible anoxic brain injury 3. High anion gap metabolic acidosis with respiratory acidosis 4. Acute hypercapnia respiratory failure with respiratory acidosis requiring ET intubation with ventilator post arrest 5. Elevated troponin, demand ischemia 6. Shock liver 7. Acute kidney failure 7. Multiple organ system failure as above 8. Normocytic anemia 9. Pneumonia 10. Leukocytosis 11. Polysubstance ingestion with urine tox screen pos for cocaine and opiates 12. Shock likely secondary to septic shock vs neurogenic shock COMPLICATIONS/CHIEF COMPLAINT: Cardiopulmonary Arrest With successful Resuscitation. HISTORY OF PRESENT ILLNESS: Patient is a 38 yo male with PMH of diabetes mellitus and reported substance use with percocet presented to [facility] ER via EMS after cardiopulmonary resuscitation with epinephrine being found laying on the floor for unclear duration of time. EMS arrived found patient unconscious, unresponsive, and apneic while CPR was being performed by [facility] fire department. His who recently got to him about 3 weeks ago is her next kin. initially reported patient was left unseen for about an hour. later reported she saw the patient in the morning when he was not feeling well and laying on the floor; she gave a pillow to the patient then departed. EMS was called around 9PM with cardiopulmonary resuscitation and intubation performed. [place] and her mother reported patient has percocet prescription for his right wrist that was recently injured, but patient finished the bottle faster than he should. Upon asking reported patient has cocaine use as well. HOSPITAL COURSE: It was noted patient had another cardiopulmonary arrest e pisode after arriving ER and received several additional doses of epinephrine. He was intubated in the ED. He received normal saline bolus and was started on maintenance fluid in ER. Patient was admitted to the ICU, and his urine tox screen was positive for opiates and cocaine use. He was started on dopamine in the ER with right sided IJ central line placed in ER. He was subsequently switched to levophed and had a left sided IJ placed as the placement was likely semi-sterile. The right sided IJ centra line was then removed. Right sided femoral arterial line was also placed. Patient's head CT done upon admission formal report returned morning and showed cerebral edema. Patient was noted to have elevated liver profiles which was thought to be due to shock liver; NAC protocol was started. IV antibiotics was started as pt noted to have infiltrates on CXR, and sputum cx result later showed 3 different bacteria including actinobacter, pantoea, e-coli, H. flu, yeast-like organism. Elevated coagulation panel was thought to be contributed by both heparin use and shock liver. His elevated troponin was thought to be due to CRP and demand ischemia, with some persistence due to YURY. Patient had increased anion-gap metabolic acidosis with respiratory acidosis and persistently acidotic despite adjustments to ventilator settings and improving lactic acidosis. Nephrology was consulted and started continuous renal replacement therapy to help with the metabolic acidosis as well as electrolyte disturbances. CRRT was held overnight as patient had periods of hypotension which later resolved after getting fluid bolus and increased levophed infusion rate. CRRT was restarted with improvement in his acidosis and uremia and electrolyte derangements. On the day of discharge, patient's neurologic status had declined. His pupils which previously were small and sluggish became fixed and dilated. Patient previously had been over breathing on ventilator and then stopped. Despite improvement in metabolic derangements and sedation discontinuation patient was non responsive with no reflexes. Discussed his poor neurologic prognosis with family and they expressed desire for palliative extubation process and comfort measures only. DISCHARGE MEDICATIONS: Please see below. ALLERGIES: Please see below. PHYSICAL EXAMINATION ON DISCHARGE: VITAL SIGNS: Please see below. GENERAL: Not alert and non-conscious. ET tube and NG tube removed HEENT: Bilateral fixed pupil about 6mm in diameter, non-responsive to light. No oculocephalic reflex. NECK: Left IJ central venous line in place. CARDIOVASCULAR EXAMINATION: heart sounds difficult to auscultate. Mildly tachycardic with regular rhythm RESPIRATORY EXAMINATION: Diminished breath sounds nearly non auscultatable. ABDOMINAL EXAMINATION: soft, no distention or guarding. Hypoactive bowel sounds. EXTREMITIES: Faint radial pulse pal bilaterally SKIN: mildly cyanotic NEUROLOGICAL EXAMINATION: glascow coma scale zero. Non-responsive to painful stimuli. Pupil bilateral fixed and non-responsive to light. LABORATORY DATA: Please see below. IMAGING: Serial Chest X ray monitoring for ET tube placement. CXR showed extensive atelectasis/infiltrates in left lung. CXR Also showed showed some perihilar interstitial change in right lung but improvement. Last CXR showed left sided effusion, hazy opacity in the left base obscuring left hemidiaphragm, left sided IJ central line, and right sided dialysis catheter in place. Head CT showed cerebral edema with effaced basilar cisterns. ACTIVITY: [As tolerated]. DISPOSITION: DISCHARGE CONDITION: at 1140 on 11/28/2018 TIME SPENT ON DISCHARGE: Greater than 50 minutes. Vital Signs/I&Os Vital Signs Date Time Temp Pulse Resp B/P (MAP) Pulse Ox O2 Delivery O2 Flow Rate FiO2 11/28/18 10:00 94/62 11/28/18 09:00 98.4 100 32 93 50 11/27/18 11:06 Ventilator 11/25/18 21:55 15.0 I&O- Last 24 Hours up to 6 AM 11/28/18 06:00 Intake Total 2285.7 ml Output Total 420 ml Balance 1865.7 ml Laboratory Data Labs 24H Laboratory Tests 2 11/27/18 11:37: Nucleated Red Blood Cells % (auto) 0.1H, Prothrombin Time 25.6H, Prothromb Time International Ratio 2.35, Activated Partial Thromboplast Time 33.6, Anion Gap 18H, Glomerular Filtration Rate 12.1L, Lactic Acid Followup at 4 Hours 2.8*H, Blood Urea Nitrogen 79H, Creatinine 5.63H, Sodium Level 135L, Potassium Level 4.7, Chloride Level 95L, Carbon Dioxide Level 22, Calcium Level 6.6L, Phosphorus Level 7.0H, Aspartate Amino Transf (AST/SGOT) 3873H, Alanine Aminotransferase (ALT/SGPT) 3205H, Alkaline Phosphatase 61, Total Bilirubin 1.7H, Total Protein 4.8L, Albumin 2.4L, Magnesium Level 1.9, Albumin/Globulin Ratio 1.00 11/27/18 11:40: Whole Blood Ionized Calcium 3.4*L 11/27/18 11:46: Blood Gas Bicarbonate Standard 17.1L, Arterial Blood pH 7.209*L, Arterial Blood Partial Pressure CO2 47.5H, Arterial Blood Partial Pressure O2 98.2, Arterial Blood Total CO2 20.0L, Arterial Blood HCO3 18.5L, Arterial Blood Base Excess - 9.3L, Arterial Blood Oxygen Saturation 97.1 11/27/18 15:26: Bedside Glucose (Misc Panel) 106H 11/27/18 17:49: Nucleated Red Blood Cells % (auto) 0.1H, Prothrombin Time 24.0H, Prothromb Time International Ratio 2.17, Activated Partial Thromboplast Time 41.5H, Anion Gap 17H, Glomerular Filtration Rate 12.4L, Lactic Acid Level 3.1*H, Blood Urea Nitrogen 72H, Creatinine 5.53H, Sodium Level 136, Potassium Level 4.4, Chloride Level 98, Carbon Dioxide Level 21, Calcium Level 6.7L, Whole Blood Ionized Calcium 3.6L, Phosphorus Level 5.5#H, Magnesium Level 1.8 11/27/18 17:58: Blood Gas Bicarbonate Standard 17.3L, Arterial Blood pH 7.248*L, Arterial Blood Partial Pressure CO2 41.7, Arterial Blood Partial Pressure O2 94.1, Arterial Blood Total CO2 19.1L, Arterial Blood HCO3 17.8L, Arterial Blood Base Excess - 9.0L, Arterial Blood Oxygen Saturation 96.3 11/27/18 21:26: Bedside Glucose (Misc Panel) 85 11/27/18 23:34: Anion Gap 15, Glomerular Filtration Rate 13.7L, Blood Urea Nitrogen 71H, Creatinine 5.06H, Sodium Level 135L, Potassium Level 4.1, Chloride Level 99, Carbon Dioxide Level 21, Calcium Level 6.9L, Whole Blood Ionized Calcium 3.9L, Phosphorus Level 3.8#, Magnesium Level 2.1, Lactic Acid Followup at 4 Hours 3.4*H 11/27/18 23:46: Bedside Glucose (Misc Panel) 135H 11/28/18 02:27: Blood Gas Bicarbonate Standard 19.0L, Arterial Blood pH 7.287L, Arterial Blood Partial Pressure CO2 41.8, Arterial Blood Partial Pressure O2 87.6, Arterial Blood Total CO2 20.8L, Arterial Blood HCO3 19.5L, Arterial Blood Base Excess - 6.7L, Arterial Blood Oxygen Saturation 95.8 11/28/18 03:57: Bedside Glucose (Misc Panel) 123H 11/28/18 05:07: Blood Gas Bicarbonate Standard 18.7L, Arterial Blood pH 7.331L, Arterial Blood Partial Pressure CO2 34.8L, Arterial Blood Partial Pressure O2 85.2, Arterial Blood Total CO2 19.0L, Arterial Blood HCO3 18.0L, Arterial Blood Base Excess -7.1L, Arterial Blood Oxygen Saturation 95.4 11/28/18 05:09: Immature Granulocyte % (Auto) , Nucleated Red Blood Cells % (auto) 0.1H, Neutrophils 74H, Band Neutrophils 11, Lymphocytes (Manual) 7L, Monocytes (Manual) 1, Metamyelocytes 6H, Atypical Lymphocytes 1, Dohle Bodies 1+, Platelet Estimate DECREASED, Immature Platelet Fraction 10.3 11/28/18 05:10: Anion Gap 13, Glomerular Filtration Rate 15.5L, Blood Urea Nitrogen 60H, Creatinine 4.56H, Sodium Level 136, Potassium Level 4.1, Chloride Level 101, Carbon Dioxide Level 22, Calcium Level 6.9L, Aspartate Amino Transf (AST/SGOT) 1737H, Alanine Aminotransferase (ALT/SGPT) 2224H, Alkaline Phosphatase 54, Total Bilirubin 1.6H, Total Protein 4.2L, Albumin 2.1L, Albumin/Globulin Ratio 1.00 11/28/18 05:11: Activated Partial Thromboplast Time 38.5H, Whole Blood Ionized Calcium 3.9L, Phosphorus Level 3.3, Magnesium Level 2.0 11/28/18 08:05: Bedside Glucose (Misc Panel) 156H CBC/BMP Laboratory Tests 11/27/18 11:37 Red Blood Count 4.57, Mean Corpuscular Volume 88.2, Mean Corpuscular Hemoglobin 30.6, Mean Corpuscular Hemoglobin Concent 34.7, Red Cell Distribution Width 13.3, Calcium Level 6.6 L, Phosphorus Level 7.0 H, Aspartate Amino Transf (A ST/SGOT) 3873 H, Alanine Aminotransferase (ALT/SGPT) 3205 H, Alkaline Phosphatase 61, Total Bilirubin 1.7 H, Total Protein 4.8 L, Albumin 2.4 L 11/27/18 17:49 Red Blood Count 4.29 L, Mean Corpuscular Volume 87.4, Mean Corpuscular Hemoglobin 30.5, Mean Corpuscular Hemoglobin Concent 34.9, Red Cell Distribution Width 13.4, Calcium Level 6.7 L 11/27/18 23:34 Calcium Level 6.9 L 11/28/18 05:09 Red Blood Count 3.87 L, Mean Corpuscular Volume 86.0, Mean Corpuscular Hemoglobin 29.7, Mean Corpuscular Hemoglobin Concent 34.5, Red Cell Distribution Width 13.4 11/28/18 05:10 Calcium Level 6.9 L, Aspartate Amino Transf (AST/SGOT) 1737 H, Alanine Aminotransferase (ALT/SGPT) 2224 H, Alkaline Phosphatase 54, Total Bilirubin 1.6 H, Total Protein 4.2 L, Albumin 2.1 L FSBS Laboratory Tests Test 11/27/18 15:26 11/27/18 21:26 11/27/18 23:46 11/28/18 03:57 Range/Units Bedside Glucose (Misc Panel) 106 85 135 123 70-105 MG/DL Test 11/28/18 08:05 Range/Units Bedside Glucose (Misc Panel) 156 70-105 MG/DL Microbiology Microbiology 11/26/18 Blood Culture - Preliminary, Resulted No Growth after 48 hours. All Specime... 11/25/18 Gram Stain - Final, Resulted 11/25/18 Sputum Culture - Preliminary, Resulted Haemophilus Influenzae Escherichia Coli Pantoea Species Acinetobacter Baumannii Comple Yeast Like Organism 11/25/18 Urine Culture - Final, Complete 11/25/18 Blood Culture - Preliminary, Resulted No Growth after 48 hours. All Specime... Discharge Medications No Active Prescriptions or Reported Meds Allergies Coded Allergies: No Known Allergies (Unverified , 11/25/18) AKIL GONSALEZ DO Nov 28, 2018 11:55 USAMA VIDAL MD Nov 29, 2018 09:07
[2018-11-28] MEDS ORDERED: VANCOMYCIN HCL 1,000 MG, VIAL MATE ADAPTER 1 EACH in D5W 250 ML IV SCH (22:00)
[2018-11-29 11:03] LABS: HEPATITIS B SURFACE ANTIGEN NEGATIVE (NEGATIVE); HEPATITIS C VIRUS ABY INDEX 8.1 INDEX (<0.8)
== END 2018-11-28 11:40 | disposition expired | DRG 181 ==
LOC: M ED 21:52 → M ED INP 11-26 00:39 → M ICU 11-26 01:34
PROVIDERS: ADMIT Internal Medicine Pulmonary Disease; ATTEND Internal Medicine Pulmonary Disease
PROC: 04HY32Z Insertion of Monitoring Device into Lower Artery, Percutaneous Approach (ICD-10-PCS; principal; 2018-11-26)
PROC: 5A1945Z Respiratory Ventilation, 24-96 Consecutive Hours (ICD-10-PCS; 2018-11-26)
PROC: 5A1D90Z Performance of Urinary Filtration, Continuous, Greater than 18 hours Per Day (ICD-10-PCS; 2018-11-27)
PROC: 02HV33Z Insertion of Infusion Device into Superior Vena Cava, Percutaneous Approach (ICD-10-PCS; 2018-11-27)
PROC: 0JH63XZ Insertion of Tunneled Vascular Access Device into Chest Subcutaneous Tissue and Fascia, Percutaneous Approach (ICD-10-PCS; 2018-11-27)
DX: I46.9 Cardiac arrest, cause unspecified (principal); G93.6 Cerebral edema; J96.02 Acute respiratory failure with hypercapnia; R65.21 Severe sepsis with septic shock; K72.00 Acute and subacute hepatic failure without coma; G93.41 Metabolic encephalopathy; A41.9 Sepsis, unspecified organism; G93.1 Anoxic brain damage, not elsewhere classified; N17.9 Acute kidney failure, unspecified; J18.9 Pneumonia, unspecified organism; E87.2 Acidosis; L76.32 Postprocedural hematoma of skin and subcutaneous tissue following other procedure; T40.5X4A Poisoning by cocaine, undetermined, initial encounter; E11.9 Type 2 diabetes mellitus without complications

== ENCOUNTER → 2018-11-28 | Outpatient (REF) | LOC: M LAB 12:30 ==